=== PATIENT | male | born 1980 | race Caucasian/White ===

== ENCOUNTER 2018-08-20 17:30 | Outpatient (RCR) | payer MEDICAID, SELFPAY ==
--- NOTE | 2018-08-13 13:01 | HP.PTEVAL_ITS ---
Patient's Visit Information YAMILET LAUGHLIN is a 38 year old M referred to Physical Therapy by FRAN Carl with a diagnosis of Thoracic spine pain, muscle spasm. Date of Evaluation: 08/01/18 Physical Therapist: Leobardo Stewart - Visit Plan Frequency: 1x/Week Duration: 4-6 Weeks Plan: Start with manual trigger point release techniques, US to L erector spine of T/S. Postural education, slight extension in sitting. Progress to postural stability exercises as tolerated. - Subjective Subjective: Pt. is here today for his initial evaluation with diagnosis of Thoracic spine pain, muscle spasm. 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 pt reports injuring their back four years ago while lifing a mini fridge. Pain decreases with time but has continuly been reagrivated through lifting and twisting motions. Pain in the throasic region was described by the pt as a stabing feeling and pain in the lumbar region as a thobing/aching pain. No radiating pain was reported. Pain at its worse after reagrivation is reported to be an 8/10. With rest pain decreases to a 2-3/10. pt stated goals for therapy as returning to pain free. - Pain Back Pain Intensity (Out of 10): 8 Pain Intensity Range: 1, 8 - Objective POSTURE: Pt. has general flexed posture, rounded shoulders and FH. Pt. is able to correct, but unable to maintain. PALPATION: Pt. has no pain with deep breathigng or coughing. Pt. has increased tenderness with palpation of Bilateral thoracic erector spine. Increaed pain with spring testing to T1-T8 without radiation. NEURO: All intact, no issues. dermatomal senstaion normal. ROM: Pt. has decreased T/S extension, normal rotation. Pt. has relief of symptoms with erect sitting/posture. MMT: 5/5 throughout UEs, except 4/5 mid trap, 4/5 rhomboids and 4/5 lower trapezius bilaterally. - Special Tests Thoracic Sitting: Flexion - Mechanical Response: No effect Thoracic Sitting: Flexion - Symptoms During Testing: Increases Thoracic Sitting: Flexion - Symptoms After Testing: No worse Thoracic Sitting: Extension - Mechanical Response: No effect Thoracic Sitting: Extension - Symptoms During Testing: Centralizing Thoracic Sitting: Extension - Symptoms After Testing: No better Thoracic Sitting: Right rotation - Mechanical Response: No effect Thoracic Sitting: Right Rotation - Symptoms During Testing: No effect Thoracic Sitting: Right Rotation - Symptoms After Testing: No effect Thoracic Sitting: Left rotation - Mechanical Response: No effect Thoracic Sitting: Left Rotation - Symptoms During Testing: No effect Thoracic Sitting: Left Rotation - Symptoms After Testing: No effect Thoracic Lying: Prone Extension - Mechanical Response: No effect Thoracic Lying: Prone Extension - Symptoms During Testing: Decreases Thoracic Lying: Prone Extension - Symptoms After Testing: No better - Goals Goal 1:: Pt. to be I with HEP. Goal Time Frame: 4-6 Weeks Goal 2:: Pt. to have full ROM of T/S without increase in symptoms. Goal Time Frame: 4-6 Weeks Goal 3:: Pt. to demonstrate improved posture throughout therapy session, indicating increased postural awareness. Goal Time Frame: 4-6 Weeks Goal 4:: Pt. to be able to lift son without increase in symptoms. Goal Time Frame: 4-6 Weeks Goal 5:: Pt. to complete work day without increase in symptoms. Goal Time Frame: 4-6 Weeks - Rehabilitation Potential Physical Therapy Diagnosis: Pt. has signs and symptoms consistent with Thoracic spine pain and muscle spasm. Pt. symptoms are most likely related to poor posture and subsequent lifting. He would benefit from muscle/trigger point release, postural stability, stretcing. Rehabilitation Potential: Excellent - Anticipated Interventions Patient/Client Instruction: Educate patient on: Condition, Plan of Care, Risk Factors, Benefits of Fitness Program For the Purpose of:: To foster healthy habits, To improve decision making, To facilitate caregiver knowledge, To improve self management, To prevent re-injury , To improve ability to perform tasks related to life management, To improve tolerance to ADL's Therapeutic Exercise to Include: Strength training, Power training, Body mechanics, Postural training, Flexibilty training, Passive ROM, Active ROM, Héctor Exercises, Scapular Strength/Stabilization For the Purpose of:: To decrease pain, To increase ROM, To improve nutrient delivery to tissue, To improve muscle performance and motor function, To improve ability to perform ADL's, To improve health of tissue, To decrease soft tissue restriction, To increase flexibility/ROM Manual Therapy Techniques to Include: Trigger point massage, Mobilization, Manipulation, Functional dry needling, Soft tissue mobilization For the Purpose of:: To decrease pain, To increase ROM, To improve nutrient delivery to tissue, To increase oxygenation perfusion, To improve muscle performance and motor function, To improve health of tissue, To decrease soft tissue restriction, To increase flexibility/ROM IF ES: Yes Ultrasound (thermal/non thermal): Yes For the Purpose of:: To decrease pain, To increase ROM Thank you for the opportunity to evaluate your patient. For Medicare and Medicare HMO plans, please review the plan of care and approve it. It will need to be FAXED BACK to us at [phone] for Medicare purposes. Please let me know if there are questions or concerns regarding this plan of care. Physician Signature: Date:
--- NOTE | 2018-12-23 16:51 | HP.PTDCNRP_ITS ---
HP - Discharge Summary (1) - Patient Information YAMILET LAUGHLIN was seen in my office for initial evaluation on 08/01/18. The following Plan of Care was established for this patient: Initial Frequency: 1x/Week Initial Duration: 4-6 Weeks - Anticipated Interventions Patient/Client Instruction: Educate patient on: Condition, Plan of Care, Risk Factors, Benefits of Fitness Program For the Purpose of:: To foster healthy habits, To improve decision making, To facilitate caregiver knowledge, To improve self management, To prevent re- injury, To improve ability to perform tasks related to life management, To improve tolerance to ADL's Therapeutic Exercise to Include: Strength training, Power training, Body mechanics, Postural training, Flexibilty training, Passive ROM, Active ROM, Héctor Exercises, Scapular Strength/Stabilization For the Purpose of:: To decrease pain, To increase ROM, To improve nutrient delivery to tissue, To improve muscle performance and motor function, To improve ability to perform ADL's, To improve health of tissue, To decrease soft tissue restriction, To increase flexibility/ROM Manual Therapy Techniques to Include: Trigger point massage, Mobilization, Manipulation, Functional dry needling, Soft tissue mobilization For the Purpose of:: To decrease pain, To increase ROM, To improve nutrient delivery to tissue, To increase oxygenation perfusion, To improve muscle performance and motor function, To improve health of tissue, To decrease soft tissue restriction, To increase flexibility/ROM IF ES: Yes Ultrasound (thermal/non thermal): Yes For the Purpose of:: To decrease pain, To increase ROM This patient was last seen in our office 08/01/18. Pertinent comments regarding their Physical therapy will appear below: Pt. was seen for his thoracic back pain. Pt. has not been seenin ~4 months and will be DC from PT at this point in time. At this point I will be discontinuing this patient from physical therapy. I would be happy to see this patient again in the future if found appropriate by the physician. Thank you! Leobardo Stewart DPT
== END 2018-08-20 19:00 | disposition home or self-care (01) ==
LOC: PT 17:30
PROVIDERS: Family Provider Nurse Practitioner Family; PCP Nurse Practitioner Family; Visit Provider Nurse Practitioner Family
DX: M54.6 Pain in thoracic spine (principal); M62.838 Other muscle spasm
CPT/HCPCS: 97035; 97110; 97162

== ENCOUNTER → 2018-11-27 15:42 | Outpatient (CLI) | payer MEDICAID, SELFPAY ==
[2018-11-27 14:14] VITALS: BMI 28.3
[2018-11-27 16:38] LABS: Hemoglobin A1c 8.5 % (4.2-6.3)
[2018-11-27 16:41] LABS: Microalbumin,Random Urine 11.6 mg/L (NO RANGE EST.); Microalbumin:Creatinine Ratio 5.8 mg/g CRE (<30 mg/g CRE)
[2018-11-27 16:53] LABS: AST(SGOT) 110 U/L (15-37); Alanine Aminotransfer ALT/SGPT 159 U/L (16-61); Albumin, Serum 3.4 g/dL (3.2-5.0); Alkaline Phosphatase 169 U/L (45-117); Anion Gap 8 (5-15); BUN 21 mg/dL (7-18); BUN/Creat Ratio 17.5 RATIO (10-20); Calcium,Total 8.7 mg/dL (8.5-10.1); Chloride 105 mmol/L (98-107); EST Glomerular Filtration Rate 72 mL/min (>60); Est Glom Filt Rate - Afr Amer 87 mL/min (>60); Globulin 3.5 g/dL (2.2-4.2); Glucose 280 mg/dL (74-106); Potassium 4.9 mmol/L (3.5-5.1); Protein, Total 6.9 g/dL (6.4-8.2); Sodium Level 141 mmol/L (136-145); T4 Free Direct 0.93 ng/dL (0.76-1.46); Thyroid Stim Hormone (TSH) 1.02 uIU/mL (0.358-3.74)
[2018-12-01 08:07] LABS: Testosterone, % Free 1.69 % (1.50-4.20); Testosterone, Free 9.55 ng/dL (5.00-21.00)
[2018-12-01 14:27] LABS: C-Peptide < 0.1 ng/mL (1.1-4.4); Testosterone, Total 565 ng/dL (264-916)
== END ==
PROVIDERS: Family Provider Nurse Practitioner Family; PCP Nurse Practitioner Family; Referring Provider Nurse Practitioner; Visit Provider Nurse Practitioner
DX: E10.65 Type 1 diabetes mellitus with hyperglycemia (principal); R53.82 Chronic fatigue, unspecified; R53.81 Other malaise
CPT/HCPCS: 36415; 80053; 82043; 82570; 83036; 84402; 84403; 84439; 84443; 84681

== ENCOUNTER → 2018-12-17 09:44 | Outpatient (CLI) | payer MEDICAID, SELFPAY ==
[2018-12-17 08:49] VITALS: BMI 29.4
[2018-12-17 12:05] LABS: AST(SGOT) 30 U/L (15-37); Alanine Aminotransfer ALT/SGPT 59 U/L (16-61); Albumin, Serum 3.7 g/dL (3.2-5.0); Alkaline Phosphatase 109 U/L (45-117); Bilirubin, Direct 0.13 mg/dL (0.00-0.30); Cholesterol 215 mg/dL (200); Globulin 3.5 g/dL (2.2-4.2); High Density Lipoprotein 42 mg/dL; Protein, Total 7.2 g/dL (6.4-8.2); Triglycerides 153 mg/dL; Very Low Density Lipoprotein 31 mg/dL (5-40)
--- OUTSIDE RECORDS SUMMARY | 2019-02-21 02:00 | XMS RPT_ITS ---
:1980 Author Organization OHIP Care Team Providers Name Role Phone SABINO ADAME Attending Unavailable SHOOK, Minesh Gaspar Referring Unavailable Nelly Hawkins Attending Unavailable Suzanne, Remy Attending Unavailable Rubio, Toan [employer] Referring Unavailable Suzanne, Remy Attending Unavailable Suzanne, [place] Referring Unavailable Rubio, Toan [employer] Primary Care Unavailable Rubio, Toan [employer] Attending Unavailable Rubio, Toan [employer] Referring Unavailable Rubio, Toan [employer] Primary Care Unavailable Rubio, Toan [employer] Attending Unavailable Oleghe, Efewongbe Referring Unavailable Oleghe, Efewongbe Primary Care Unavailable Rubio, Toan [employer] Attending Unavailable Oleghe, Efewongbe Referring Unavailable Shook, Belkis Gaspar [employer] Attending Unavailable Shook, Belkis Gaspar [employer] Referring Unavailable Rubio, Toan [employer] Primary Care Unavailable Shook, Belkis Gaspar [employer] Attending Unavailable Rubio, Toan [employer] Referring Unavailable PROBLEMS PROBLEMS DATE TYPE CONDITION / CODE ATTENDING STATUS SOURCE 12/17/2018 Unknown E10.65 - Type 1 Suzanne, Remy Active [facility] with hypergly[facility] / E10.65(ICD-10) Repository 12/17/2018 Unknown R07.9 - Chest pain, Suzanne, [place] Active [facility] unspecified / Community R07.9(ICD-10) Hospital Repository 11/27/2018 Unknown R53.82 - Chronic ShoBelkis gonzalez J Active [place] fatigue, [employer] Community unspecified / Hospital R53.82(ICD-10) Repository 11/27/2018 Unknown R53.81 - Other Blekis Roach J Active [place] malaise / [employer] Community R53.81(ICD-10) Hospital Repository 12/25/2018 Unknown M54.6 - Pain in Rubio, Toan Active [facility] thoracic spine / [employer] Community M54.6(ICD-10) Hospital Repository 07/23/2018 Unknown M62.838 - Other Rubio, Toan Active [facility] muscle spasm / [employer] Community M62.838(ICD-10) Hospital Repository PROCEDURES PROCEDURES No Procedure Records FoundRESULTS RESULTS PROGRESS Observed: 12/24/2018 Status: COMPLETED Source: [place] 1:35 PM [facility] REPOSITORY HNO ID: [id number] Author: Sabino Adame Service: (none) Author Type: Physician Type: Progress Notes Filed: 12/24/2018 2:02 PM Note Text: abnormal liver enzymes HPI: John Rangel is a 38 year old male who presents for abnormal liver enzymes. He is known diabetic since age 15; type 1. Has gained weight 50-60 lbs; over the last 5 years. Record Review: [facility] / Outside records reviewed. PAST MEDICAL HISTORY Diagnosis Date - Anxiety - Back pain - Depression - Diabetes mellitus type 1 (HCC) - Elevated liver enzymes PAST SURGICAL HISTORY Procedure Laterality Date - NONE Allergies: ALLERGIES No Known Allergies Medications: buPROPion XL (WELLBUTRIN XL) 150 mg 24 hr tablet WELLBUTRIN XL 150 MG [id number] sertraline (ZOLOFT) 100 mg tablet ZOLOFT 100 MG TABS Omeprazole 40 mg capsule Take 40 mg by mouth once daily. insulin glargine (LANTUS U-100 INSULIN) 100 unit/mL injection LANTUS 100 UNIT/ML SOLN insulin aspart U-100 (NOVOLOG U-100 INSULIN ASPART) 100 unit/mL soln NOVOLOG 100 UNIT/ML SOLN FAMILY HISTORY Problem Relation Age of Onset - Hypertension Mother - Dementia Other Employer And Job Title: None on file Years Of Education Completed: Not specified Marital Status: Social History Substance Use Topics - Smoking status: Former Smoker - Smokeless tobacco: Never Used - Alcohol use Yes Comment: social Review of Systems: Review of Systems Constitutional: Positive for fatigue. Respiratory: Positive for cough. Gastrointestinal: Heartburn Are you taking any blood thinners? No Physical Examination: BP 154/82 Pulse 95 Ht 5' 10 (1.78m) Wt 204 lb (92.5kg) SpO2 96% BMI 29.27 kg/(m2). Physical Exam Constitutional: He is oriented to person, place, and time. He appears well-developed and well-nourished. HENT: Head: Normocephalic. Eyes: Pupils are equal, round, and reactive to light. Conjunctivae and EOM are normal. Neck: Normal range of motion. Neck supple. Cardiovascular: Normal rate, regular rhythm, normal heart sounds and intact distal pulses. Pulmonary/Chest: Effort normal and breath sounds normal. Abdominal: Soft. Bowel sounds are normal. Musculoskeletal: Normal range of motion. Neurological: He is alert and oriented to person, place, and time. He has normal reflexes. Skin: Skin is warm and dry. Psychiatric: He has a normal mood and affect. His behavior is normal. Judgment and thought content normal. Vitals reviewed. Assessment: Nonalcoholic steatohepatitis (zamora) ; likely Plan: Office Visit on 12/24/18 -US ABD RT UPPER QUADRANT -HEP ACUTE PANEL/RNA -HEPATIC FUNCTION PNL -PROTHROMBIN TIME/PT -HEP B SURF AB QUANT -PHOENIX BY IFA SCREEN -LKM AB -MITOCHONDRIAL AB SCR -ALEJO IGG AB -CERULOPLASMIN BLD Loose 10-20 percent body weight Return in about 3 months (around 03/24/2019). Consultation requested by Dr. Ocampo for an opinion regarding elevated liver enzymes. My final recommendations will be communicated back to the requesting physician by way of shared Medical record or letter to requesting physician via [place] mail. I have confirmed and edited as necessary, the PFSH and ROS obtained by others. Sabino Adame MD DATE: 12/24/18 TIME: 1:54 PM CNOV Observed: 12/24/2018 Status: COMPLETED Source: [place] 1:30 PM [facility] REPOSITORY Office Visit ([facility]) MYALIZEJOHN JOY ([id number]) 1980 M Date Time Provider Department 12/24/18 1:30 PM SABINO ADAME During your visit today, we recorded the following information about you: Pulse Blood pressure Weight Height 95/minute 154/82 92.5 kg 1.778 m Sabino Adame MD 12/24/2018 2:02 PM Signed abnormal liver enzymes HPI: John Rangel is a 38 year old male who presents for abnormal liver enzymes. He is known diabetic since age 15; type 1. Has gained weight 50-60 lbs; over the last 5 years. Record Review: [facility] / Outside records reviewed. PAST MEDICAL HISTORY Diagnosis Date - Anxiety - Back pain - Depression - Diabetes mellitus type 1 (HCC) - Elevated liver enzymes PAST SURGICAL HISTORY Procedure Laterality Date - NONE Allergies: ALLERGIES No Known Allergies Medications: buPROPion XL (WELLBUTRIN XL) 150 mg 24 hr tablet WELLBUTRIN XL 150 MG [id number] sertraline (ZOLOFT) 100 mg tablet ZOLOFT 100 MG TABS Omeprazole 40 mg capsule Take 40 mg by mouth once daily. insulin glargine (LANTUS U-100 INSULIN) 100 unit/mL injection LANTUS 100 UNIT/ML SOLN insulin aspart U-100 (NOVOLOG U-100 INSULIN ASPART) 100 unit/mL soln NOVOLOG 100 UNIT/ML SOLN FAMILY HISTORY Problem Relation Age of Onset - Hypertension Mother - Dementia Other Employer And Job Title: None on file Years Of Education Completed: Not specified Marital Status: Social History Substance Use Topics - Smoking status: Former Smoker - Smokeless tobacco: Never Used - Alcohol use Yes Comment: social Review of Systems: Review of Systems Constitutional: Positive for fatigue. Respiratory: Positive for cough. Gastrointestinal: Heartburn Are you taking any blood thinners? No Physical Examination: BP 154/82 Pulse 95 Ht 5' 10 (1.78m) Wt 204 lb (92.5kg) SpO2 96% BMI 29.27 kg/(m2). Physical Exam Constitutional: He is oriented to person, place, and time. He appears well-developed and well-nourished. HENT: Head: Normocephalic. Eyes: Pupils are equal, round, and reactive to light. Conjunctivae and EOM are normal. Neck: Normal range of motion. Neck supple. Cardiovascular: Normal rate, regular rhythm, normal heart sounds and intact distal pulses. Pulmonary/Chest: Effort normal and breath sounds normal. Abdominal: Soft. Bowel sounds are normal. Musculoskeletal: Normal range of motion. Neurological: He is alert and oriented to person, place, and time. He has normal reflexes. Skin: Skin is warm and dry. Psychiatric: He has a normal mood and affect. His behavior is normal. Judgment and thought content normal. Vitals reviewed. Assessment: Nonalcoholic steatohepatitis (zamora) ; likely Plan: Office Visit on 12/24/18 -US ABD RT UPPER QUADRANT -HEP ACUTE PANEL/RNA -HEPATIC FUNCTION PNL -PROTHROMBIN TIME/PT -HEP B SURF AB QUANT -PHOENIX BY IFA SCREEN -LKM AB -MITOCHONDRIAL AB SCR -ALEJO IGG AB -CERULOPLASMIN BLD Loose 10-20 percent body weight Return in about 3 months (around 03/24/2019). Consultation requested by Dr. Ocampo for an opinion regarding elevated liver enzymes. My final recommendations will be communicated back to the requesting physician by way of shared Medical record or letter to requesting physician via US mail. I have confirmed and edited as necessary, the PFSH and ROS obtained by others. Sabino Adame MD DATE: 12/24/18 TIME: 1:54 PM Referring Provider: Minesh ROACH [[id number]] Allergies As of Date: 12/24/2018 (No Known Allergies) Date Reviewed: 12/24/2018 Reviewed by: Lucero Cotton LPN - Fully Assessed Reason for Visit: abnormal liver enzymes [Other] Visit Diagnosis:Nonalcoholic steatohepatitis (ZAMORA) [K75.81] Order(s):HEP ACUTE PANEL/RNA [SQHACRNA] Order #: [id number] FUTURE HEPATIC FUNCTION PNL [SQHFP] Order #: [id number] FUTURE PROTHROMBIN TIME/PT [SQPT] Order #: [id number] FUTURE HEP B SURF AB QUANT [SQAHBSQ] Order #: [id number] FUTURE PHOENIX BY IFA SCREEN [SQANAIFS] Order #: [id number] FUTURE LKM AB [SQLKM] Order #: [id number] FUTURE MITOCHONDRIAL AB SCR [SQMITOS] Order #: [id number] FUTURE ALEJO IGG AB [SQSMAB] Order #: [id number] FUTURE US ABD RT UPPER QUADRANT [1445115] Order #: [id number] FUTURE CERULOPLASMIN BLD [SQCERULO] Order #: [id number] FUTURE Prescriptions as of 12/24/2018 Sig: BUPROPION XL 150 MG TAB WELLBUTRIN XL 150 MG [id number] SERTRALINE 100 MG TABLET ZOLOFT 100 MG TABS OMEPRAZOLE 40 MG CAPSULE,LISA* Take 40 mg by mouth once rafal* INSULIN GLARGINE (U-100) 100 * LANTUS 100 UNIT/ML SOLN INSULIN ASPART U-100 100 UNI* NOVOLOG 100 UNIT/ML SOLN Problem List As Of Date 12/24/2018 Noted Resolved Nonalcoholic steatohepatitis (ZAMORA) [K75.81] INVALID FOR* Disposition: Return in about 3 months (around 03/24/2019). Follow-up and Disposition History Recorded Encounter Status:Closed by SABINO ADAME on 12/24/18 LIVER PROFILE Collected: 12/17/2018 Status: F Source: [place] 9:59 AM [facility] REPOSITORY TYPE CODE TESTS RESULT OUT OF RANGE REFERENCE UNITS LAB L501.1500 6.4-8.2 g/dL Normal T PROT 7.2 LAB L501.1800 3.2-5.0 g/dL Normal ALB 3.7 LAB L501.1950 2.2-4.2 g/dL Normal GLOB 3.5 LAB L501.4100 15-37 U/L Normal AST 30 LAB L501.4305 45-117 U/L Normal ALK P 109 LAB L501.4405 16-61 U/L Normal ALT 59 LAB L501.4600 0.20-1.00 mg/dL Normal T BILI 0.70 LAB L501.4700 0.00-0.30 mg/dL Normal D BILI 0.13 Performed By: #### L500.3400, L500.4100 #### [facility] [address] [place], [address] LIPID PROFILE Collected: 12/17/2018 Status: F Source: [place] 9:59 AM [facility] REPOSITORY TYPE CODE TESTS RESULT OUT OF RANGE REFERENCE UNITS LAB L501.4900 200 mg/dL High CHOL 215 Result Comment: <200 mg/dL Desirable 200-240 mg/dL Borderline >240 mg/dL High Risk LAB L501.5000 mg/dL Normal TRIG 153 Result Comment: The drugs N-Acetylcysteine and Metamizole may falsely depress this assay. Serum Triglycerides Reference Interval Normal <150 mg/dL Borderline high 150 - 199 mg/dL High 200 - 499 mg/dL Very High > or = 500 mg/dL LAB L501.6400 mg/dL Normal HDL 42 Result Comment: The drugs N-Acetylcysteine and Metamizole may falsely depress this assay. Reference Range HDL <40 mg/dL Low HDL Cholesterol HDL >or= 60 mg/dL High HDL Cholesterol LAB L501.6500 0-130 mg/dL High LDL 142 LAB L501.6600 5-40 mg/dL Normal VLDL 31 Performed By: #### L500.3400, L500.4100 #### [facility] [address] [place], [address] CARDIOLOGY VISIT Observed: 12/17/2018 Status: F Source: [place] 9:37 AM [facility] REPOSITORY [facility] [address] [place] [address] OFFICE VISIT Date of Service: 12/17/18 MR#: [id number] Acct: [id number] Name: JOHN RANGEL Rep #: [id number] : 1980 Provider: Remy Palacios MD Age/Sex: 38/M Location: [facility] Status: Signed HPI HPI Chief Complaint: Initial visit Details: JOHN RANGEL, is a 38 M who presents to the office today for an initial visit. He is a gentleman with a history of type 1 diabetes since age 14. He complains of chest pain which he describes as intermittent sharp but not necessarily related to activity noted associated with any radiation dizziness or diaphoresis. He is also had some palpitations on occasion. He says that this has been going on for a few months. He mentioned it to his arts and sciences dean who referred him here. He does have a history of anxiety disorder. He is not had any uday syncope or syncope he is not had any claudication. His physical exam here today demonstrates clear lung singleton regular rate and rhythm no carotid bruit no pedal edema his electrocardiogram demonstrates normal sinus rhythm with a rate of 70 bpm no acute changes are noted. Intake Vital Signs12/17/18 Height 5 ft 10 in Intake Visit Reasons: Ref'd by endo for intmt CP Allergies No Known Allergies Allergy (Verified 12/17/18 08:50) Medications glucagon (human recombinant) 1 mg injection kit 1 mg IM ONCE 12/05/17 [History Confirmed 11/27/18] novolog SC TID 12/05/17 [History Confirmed 11/27/18] sertraline 100 mg tablet 100 mg PO QDAY 12/05/17 [History Confirmed 11/27/18] BD Ultra-Fine Jeanne Pen Needle 32 gauge x See Dose Instructions .ROUTE .MEDSUPPLY #150 ea NS 02/01/18 [Rx Confirmed 11/27/18] cyclobenzaprine 10 mg tablet 5 mg PO TID PRN #30 tab 07/23/18 [Rx Confirmed 11/27/18] omeprazole 40 mg capsule,delayed release 40 mg PO DAILY #30 cap 11/07/18 [Rx Confirmed 11/27/18] bupropion HCl XL 150 mg 24 hr tablet, extended release 150 mg PO QAM #90 tab 11/21/18 [Rx Confirmed 11/27/18] naproxen 500 mg tablet 500 mg PO Q12H PRN #60 tab 11/21/18 [Rx Confirmed 11/27/18] insulin aspart U- 100 100 unit/mL subcutaneous pen See Rx Instructions SC .COMPLEX #30 ml 11/24/18 [Rx Confirmed 11/27/18] insulin glargine (U-100) 100 unit/mL (3 mL) subcutaneous pen 50 unit SC DAILY #15 ml 12/03/18 [Rx] [facility] Medical History Diabetes mellitus type 1, uncontrolled, insulin dependent (Chronic) Anxiety and depression (Chronic) Chronic back pain (Chronic) GERD (gastroesophageal reflux disease) (Chronic) Nondisplaced fracture of fifth metatarsal bone (Resolved) Family History Mother Hypertension Grandmother Dementia Social History Smoking Status: Former smoker alcohol intake: current alcohol intake frequency: holidays/special occasions only Alcohol type: beer, wine substance use type: does not use what type of physical activity do you participate in: none ROS Const Const: Positive for fatigue; negative for weakness, difficulty sleeping, frequent falls, excessive sweating or headache(s) Eyes Eyes: Negative for loss of peripheral vision, transient loss of vision, blurry vision, tunnel vision or double vision ENT ENT: Negative for headache(s), dizziness, Nosebleed/epistaxis or balance problems Cardio Chest Pain: Yes (With palpitations, tightness last longer than palpitations becomes SOB) Frequency: monthly Character: tightness Palpitations: Yes (For several years has had episodes of fluttering lasting a few minutes) feels like its: fast (fluttering), irregular Edema: None Muscle aches with walking: None Resp Respiratory: Positive for snoring; negative for SOB with activity, SOB at rest, SOB orthopnea\SOB lying down, paroxysmal nocturnal dyspnea or Cough GI GI: Negative nausea, heartburn, black,tarry stools or vomiting : Negative for hematuria Musc Musc: Negative for balance problems, muscle aches/ myalgia, muscle weakness or joint pain Skin Skin: Negative non-healing lesions, unusual bruising or rash Neuro Neuro: Negative for weakness, frequent falls, headache(s), blurry vision, double vision, dizziness, lightheadedness, orthostatic symptoms, near syncope, syncope or lack of coordination Rajiv Hematologic/Lymphatic: Negative for easy bruising or easy bleeding Endo Endo: Positive for fatigue; negative for excessive sweating or increased thirst/drinking Psych Psych: Negative for anxiety or depression Allergy Allergy/Immunology: Negative for hives, Negative for rash Cardiology Exam Const Appearance: cooperative, healthy appearing, well developed, well groomed and no acute distress Nutritional Appearance: well nourished and average body habitus Orientation: alert, awake and oriented x3 Head Head: normal to inspection, normocephalic and atraumatic Ears: hearing grossly normal bilaterally and external ears normal Nose: external nose normal, nasal mucous membranes and turbinates normal, nares normal, septum normal, no nasal discharge Face and Sinus: face symmetric Mouth: oral mucosae normal, tongue normal, oropharynx normal and moist mucous membranes Teeth and gingiva: dentition normal Throat: posterior oropharynx normal, tonsils normal and uvula midline Eyes General: appearance normal, both eyes and all related structures Eyelids: eyelids normal Conjunctivae: conjunctivae normal Pupils: PERRL, normal by confrontation and accommodation normal EOM: EOM intact bilaterally Neck Neck: normal visual inspection, trachea midline and no JVD JVD: +5 Carotids: normal carotid upstroke and bounding pulses Chest Chest inspection: normal inspection of the chest, symmetric chest movement and normal respiratory effort Auscultation: Bilateral: Clear to Auscultation Cardio Palpation: normal PMI Rate: regular rate Rhythm: regular rhythm Heart sounds: S1 normal, S2 normal and normal, physiologic split S2; negative rub, gallop or murmur GI GI: normal to inspection, soft, no hepatosplenomegaly and bowel sounds present Neuro General: alert, awake, oriented x3, no focal sensory deficit, gait normal and moves all extremities Skin Skin: no rashes or lesions noted Extremities Pulses: Normal: Right Femoral Pulse, Left Femoral Pulse, Right Dorsalis Pedis Pulse, Left Dorsalis Pedis Pulse, Right Posterior Tibial Pulse, Left Posterior Tibial Pulse, Right Radial Pulse, Left Radial Pulse Lower Extremity Edema: None: Bilateral Musculoskel Musculoskeletal: No joint tenderness Psych Psychological: normal affect Assessment AND Plan 1. Chest pain R07.9 Plan He does have a history of chest pain which is somewhat atypical. He does unfortunately however have a diagnosis of a type 1 diabetes and based on the above I would recommend that we obtain an exercise myocardial perfusion stress test as well as an echocardiogram. Depending on the findings of the above further recommendations will be made. Further risk stratification should also be performed by him obtaining a lipid profile. I would communicate with him the results of the above afterwards. Orders Orders: Plan Detail Other Orders Orders: Follow Up prn Coding Level of Care Code Off vis,new,level 4 Diagnoses Chest pain R07.9 Coding Level of Care Code Off vis,new,level 4 Diagnoses Chest pain R07.9 Supplemental Info Supplemental Information Diagnostics Electrocardiogram 12/17/18 12/17/18 0937 <Electronically signed by Remy Palacios MD> Date Remy Palacios MD Cosigner Signature: Date (if applicable) CC: Toan Rubio [employer] 12 LEAD EKG PERFORMED Observed: 12/17/2018 Status: F Source: [place] [facility] 8:55 AM [facility] REPOSITORY [facility] [address] [place] [address] 12 Lead EKG performed by [facility] 12/17/18 0851 MR#: [id number] Acct: [id number] Name: JOHN RANGEL Rep #: [id number] : 1980 38 From: Remy Palacios MD Attending Dr: Remy Palacios MD Status: DEP AMB Ordering Dr: Remy Palacios MD Date: 12/17/18 Location: [facility] Sex: M C Admitted: [facility]/12 Lead EKG performed by [facility] ECG Report Interpretation Sinus Rhythm WITHIN NORMAL LIMITSElectronically signed on 12/23/2018 at 13:15 by Remy Palacios Software Version [id number] 12/23/18 1319 Date Remy Palacios MD CC: Toan Rubio [employer] Date Dictated: 12/17/18 0851 Date Transcribed: 12/17/1851 [employer] Well Pumper: [place] Signed ENDOCRINOLOGY VISIT Observed: 12/02/2018 Status: F Source: [place] REPORT 5:25 PM [facility] REPOSITORY [facility] [address] [place] [address]. [address] [place] [address] OFFICE VISIT Date of Service: 11/27/18 MR#: [id number] Acct: [id number] Name: JOHN RANGEL Rep #: [id number] : 1980 Provider: Belkis Roach NP Age/Sex: 38/M Location: [facility] Status: Signed HPI History of present illness John Rangel is a 38 year old male who presents as a follow up for type 1 diabetes, accompanied by his . Diagnosed at age 14. Seen one time over 1 year ago. Has not had follow up for diabetes since that time. Reports currently he is interested in an insulin pump. He is now qualified for insurance with work beginning in December 2018 Wore the app2you sensor for awhile but reports cost prohibitive. He reports he continues to take lantus at 50 units daily and not to make any adjustments in it.. He uses novolog up to 15 units pre meal Carb counts some but does not use or understand I/C ratio's. Also known hx of depression and back pain. Diet 3 meals and snacks,zoe at bedtime Some carb counting No I/C ratio SMBG am 83-400 12n 82-200+ 5p 72-240 9p 55-170 12m 50-500 Type: type 1, insulin-requiring Glucose control symptoms: Reports high fasting glucose, high post-meal glucose and daytime hypoglycemia Weight and fatigue symptoms: Denies snoring Cardiopulmonary symptoms: Denies chest pain at rest, dyspnea on exertion, lightheadedness or myalgias GI symptoms: Reports nausea/dyspepsia and vomiting; denies constipation or diarrhea Skin and extremity symptoms: Denies erectile dysfunction Other symptoms: Denies blurry vision or change in vision Pertinent visit history: Denies recent visit to ER, recent hospital admission, recent DKA or recent 911 calls Self monitoring: Yes Percentage of fasting blood glucose within goal: <25% of the time Dietary compliance: Diabetes: other Diabetes education in past year: No Glucose testing: demonstrates correct use of meter Sick day education - understands ketone testing: Yes Physical activity: regular Exam Const General: healthy appearing Nutritional Appearance: well nourished Orientation: oriented x3 HENMT Head: normal to inspection, normocephalic Ears: hearing grossly normal bilaterally Nose: external nose normal Face and sinus: normal facial exam Mouth: oral mucosae normal, moist mucous membranes Teeth and gingiva: dentition normal Eyes General: appearance normal, both eyes and all related structures Eyelids: eyelids normal Conjunctivae: conjunctivae normal Sclera: sclerae normal Resp Effort AND Inspection: normal respiratory effort, able to speak in complete sentences, symmetric chest movement Auscultation: Bilateral: Clear to Auscultation Cardio Rate: regular rate Rhythm: regular rhythm Heart Sounds: S1 normal, S2 normal, no murmurs, no rubs GI Inspection: normal to inspection Auscultation: normal bowel sounds Skin General: no rashes or lesions noted, elasticity normal Wounds: no wounds Diabetic Foot Pulses: L dorsalis pedis pulse: normal, R dorsalis pedis pulse: normal Neuro General: oriented x3, moves all extremities Cranial Nerves: hearing normal Cognition: normal cognition Speech: speech normal Gait: normal gait Extrem General: normal to inspection, normal capillary refill, no pedal edema Psych Appearance: grossly normal Mental Status: mental status grossly normal Mood: congruent mood Affect: normal affect Speech and Movement: speech and movement normal Attitude: cooperative Thought Process: normal Thought Content: normal Judgment: judgment good Intake Vital Signs11/27/18 Body Mass Index (BMI) 28.3 Intake Visit Reasons: Diabetes Mellitus Type 1 Chief Complaint: back pain Allergies No Known Allergies Allergy (Verified 11/27/18 14:31) Medications glucagon (human recombinant) 1 mg injection kit 1 mg IM ONCE 12/05/17 [History Confirmed 11/27/18] insulin glargine (U- 100) 100 unit/mL subcutaneous solution 90 unit SC QHS ml 12/05/17 [History Confirmed 11/27/18] novolog SC TID 12/05/17 [History Confirmed 11/27/18] sertraline 100 mg tablet 100 mg PO QDAY 12/05/17 [History Confirmed 11/27/18] BD Ultra-Fine Jeanne Pen Needle 32 gauge x See Dose Instructions .ROUTE .MEDSUPPLY #150 ea NS 02/01/18 [Rx Confirmed 11/27/18] cyclobenzaprine 10 mg tablet 5 mg PO TID PRN #30 tab 07/23/18 [Rx Confirmed 11/27/18] omeprazole 40 mg capsule,delayed release 40 mg PO DAILY #30 cap 11/07/18 [Rx Confirmed 11/27/18] bupropion HCl XL 150 mg 24 hr tablet, extended release 150 mg PO QAM #90 tab 11/21/18 [Rx Confirmed 11/27/18] naproxen 500 mg tablet 500 mg PO Q12H PRN #60 tab 11/21/18 [Rx Confirmed 11/27/18] insulin aspart U- 100 100 unit/mL subcutaneous pen See Rx Instructions SC .COMPLEX #30 ml 11/24/18 [Rx Confirmed 11/27/18] PFSH Medical History Nondisplaced fracture of fifth metatarsal bone of right foot (Acute) Anxiety (Chronic) diabetes type 1 (Chronic) Depression (Chronic) Back pain (Chronic) Family History Mother Hypertension Grandmother Dementia Social History Smoking Status: Former smoker alcohol intake: current alcohol intake frequency: holidays/special occasions only Alcohol type: beer, wine substance use type: does not use what type of physical activity do you participate in: none ROS Const Constitutional: Positive for fever(s); no anorexia, body ache, chills, fatigue, frequent falls, decreased energy, malaise, night sweats, weakness, weight change, sleep problems, abnormal sleep pattern, change in appetite, other, headache(s), snoring or excessive sweating Eyes Eyes: No blurry vision, change in vision, double vision, discharge, dry eyes, bulging eyes, floaters, visual disturbances, eye pain, light sensitivity, spots in vision, tunnel vision or other ENT ENT: Positive for nasal congestion and nasal discharge; no abnormal hearing, ear pain, ear discharge, ear pressure, hearing loss, tinnitus, dizziness/vertigo, balance problems, nosebleed/epistaxis, nasal obstruction, nose pain, sinus pressure, sinus pain, post nasal drip, headache(s), facial pain, dental pain, dry mouth, bad breath, hoarseness, lip swelling, mouth lesions, mouth pain, sore throat, tongue swelling, throat swelling, other, difficulty swallowing or neck pain Resp Respiratory: No cough, change in phlegm color, chest congestion, excessive phlegm production, hemoptysis, pain on inspiration, shortness of breath, pain with cough, snoring, stridor, wheezing or other Cardio Cardiology: No chest pain at rest, chest pain with exertion, leg pain with exertion, excessive sweating, shortness of breath, dyspnea on exertion, generalized swelling, irregular heart rhythm, lightheadedness, orthopnea, radiating jaw, neck or arm pain, fast heart rate, slow heart rate, palpitations or other Gastro GI: Positive for nausea/dyspepsia and vomiting; no abdominal pain, belching, bloating, change in bowel habits, change in stool character, coffee ground emesis, constipation, cramping, diarrhea, heartburn, difficulty swallowing, feeling full early, excessive flatus, incontinent of stools, Vomiting blood/hematemesis, blood in stool, loose stools, Black,tarry stools, pain with swallowing or other Genitourinary Male: No difficulty urinating, burning urination, painful urination, urinary incontinence, urinary frequency, urinary urgency, urinary hesitancy, urinary retention, blood in urine, Frequent nighttime urination/ nocturia, post void dribbling, suprapubic fullness, side pain, sexual problems, genital lesions, genital itching, erectile dysfunction, penile discharge, difficulty with ejaculations, blood in semen, scrotal swelling, testicle lump, testicle pain or other Musc Musculoskeletal: No abnormal walking, joint pain, back pain, deformity, joint swelling, limited range of motion, loss of height, muscle cramps, muscle weakness, decreased muscle mass, body aches, neck pain, numbness, radiating pain into limb, stiffness, tingling or other Skin Skin: No acne, hair loss, change in hair, nail changes, boil, change in skin color, dry skin, redness, excessive hair growth, yellowing of the skin, lesions, itching, rash, skin pain, skin ulcer, sores, skin swelling, wounds or other Breast Breast: No other Neuro Neurology: No frequent falls, weakness, visual disturbances, abnormal hearing, headache(s), abnormal walking, numbness or tingling Psych Psychiatric: No abnormal sleep pattern, No change in appetite Endo Endocrine: No fatigue, other or excessive sweating Aller/Imm Allergy/Immunologic: No lip swelling, tongue swelling, throat swelling, wheezing or itchy eyes Assessment AND Plan Problems 1. Uncontrolled type 1 diabetes mellitus with hyperglycemia E10.65 Plan BG readings checked 2-4 times daily. Not checked in consistent manner such as before meals and 2 hours after. Discussed with patient as a type 1 he requires visits on consistent basis and should be seen every 3 months with consistent labs done as well Discussed with patient how to carb count and the importance of determining his I/C ratio for use with an insulin pump. He is ask to check Bg consistently and RTC for further review and possible adjustment of insulin. Labs due Reports recent onset of ED. Instructed bg can have enormous effect on this and he will need to have better control When ask if he had any cardiac issue he then tells me he has episodes of chest pain a few times a month. None at time of visit. Reports pain is dull and lasts only a few minutes. No SOB or sweating noted with pain. He reports it is independent of whether or not he is active. Patient Instructions Labs Consult cardiology Check BG in pairs, before meals and 2 hours after meal RTC for further review and possibly adjustment. Orders Orders: Plan Detail Additional Comments 1. Please schedule follow up in 3-4 weeks. Please be on time for appointments. 2. Lab work one week before appointment. 3. Discussed importance of regular exercise and recommend starting or continuing a regular exercise program for good health. 4. The patient was encouraged to lose weight for good health 5. The importance of monitoring blood sugar regularly was reviewed. 6. The importance of monitoring the HBA1c level regularly was reviewed. 7. The importance of prper foot care and regularly checking feet to prevent sores and loss of limbs was reviewed. 8. The importance of keeping BP at or below 130/80 to prevent stroke, heart attacks, kidney failure, blindness was reviewed. Spent approximately 45 minutes with patient with over 50% of time spent in discussion and counseling regarding medication adjustment, symptoms and treatment of hypoglycemia, diet adherence, and checking BG before driving. Coding Level of Care Code Off vis,est,level 4 Diagnoses Uncontrolled type 1 diabetes mellitus with hyperglycemia E10.65 Glycemic state: with hyperglycemia 12/02/18 1725 <Electronically signed by Belkis PETERS> Date Belkis PETERS Cosigner Signature: Date (if applicable) CC: HEMOGLOBIN A1C Collected: 11/27/2018 Status: F Source: [place] 3:47 PM [facility] [place] REPOSITORY TYPE CODE TESTS RESULT OUT OF RANGE REFERENCE UNITS LAB L501.9985 4.2-6.3 % High HGB A1C 8.5 Performed By: #### L501.9985 #### [facility] [address] [place], [place], [address] MICROALB:CREAT Collected: 11/27/2018 Status: F Source: [place]I RATIO,RANDOM UR 3:47 PM [facility] REPOSITORY TYPE CODE TESTS RESULT OUT OF RANGE REFERENCE UNITS LAB L501.1200 NO RANGE EST. mg/dL Normal UR CREAT 201.00 LAB L502.0500 NO RANGE EST. mg/L Normal 11.6 MICROALBUMIN ,UR LAB L502.0600 <30 mg/g CRE mg/g CRE Normal 5.8 MALB:CREAT Performed By: #### L502.0250 #### [facility] [address] [place], [place], [address] COMPREHENSIVE METABOLIC Collected: 11/27/2018 Status: F Source: YI PROFIL 3:47 PM [facility] [place] REPOSITORY Order Comment: Has Patient had X-rays with Contrast this admission? N TYPE CODE TESTS RESULT OUT OF RANGE REFERENCE UNITS LAB L501.0100 74-106 mg/dL High GLU 280 Result Comment: Glucose result greater than or equal to 200 mg/dL suggests DIABETES MELLITUS per A.D.A. criteria. Please note revised GLUCOSE reference range effective 2018. LAB L501.1000 7-18 mg/dL High BUN 21 LAB L501.1100 0.70-1.30 mg/dL Normal CREAT,SERUM 1.20 Result Comment: The validity of the calculated GFR AND GFRAA in patients over 70 years has not been determined. Clinical correlation is essential. LAB L501.1110 >60 mL/min Normal EST GFR 72 Result Comment: Non- GFR Calc LAB L501.1115 >60 mL/min Normal EST GFR - AA 87 Result Comment: GFR Calc LAB L501.1300 10-20 RATIO Normal BUN/CRE 17.5 LAB L501.1500 6.4-8.2 g/dL T Normal PROT 6.9 LAB L501.1800 3.2-5.0 g/dL Normal ALB 3.4 LAB L501.1950 2.2-4.2 g/dL Normal GLOB 3.5 LAB L501.2000 0.9-2.4 RATIO Normal A/G 1.0 LAB L501.2200 8.5-10.1 mg/dL CA Normal 8.7 LAB L501.4100 15-37 U/L High AST 110 Result Comment: Slight Hemolysis, Result may be falsely increased. LAB L501.4305 45-117 U/L High ALK P 169 LAB L501.4405 16-61 U/L High ALT 159 LAB L501.4600 0.20-1.00 mg/dL Normal T BILI 0.40 LAB L501.5300 136-145 mmol/L Normal NA 141 LAB L501.5600 3.5-5.1 mmol/L Normal K 4.9 Result Comment: Slight Hemolysis, Result may be falsely increased. LAB L501.5900 98-107 mmol/L Normal CL 105 LAB L501.6100 21.0-32.0 mmol/L Normal CO2 28.0 LAB L501.6200 5-15 Normal 8 GAP Performed By: #### L500.4050, L501.9520, L506.0400 #### [facility] [address] [place], [address] THYROID STIM HORMONE Collected: 11/27/2018 Status: F Source: YI (TSH) 3:47 PM [facility] REPOSITORY Order Comment: Has Patient had X-rays with Contrast this admission? N TYPE CODE TESTS RESULT OUT OF RANGE REFERENCE UNITS LAB L501.9520 0.358-3.74 uIU/mL Normal TSH 1.02 Performed By: #### L500.4050, L501.9520, L506.0400 #### [facility] [address] [place], [address] T4 FREE DIRECT Collected: 11/27/2018 Status: F Source: [place] 3:47 PM [facility] REPOSITORY Order Comment: Has Patient had X-rays with Contrast this admission? N TYPE CODE TESTS RESULT OUT OF RANGE REFERENCE UNITS LAB L506.0400 0.76-1.46 ng/dL Normal T4 FREE 0.93 DIRECT Performed By: #### L500.4050, L501.9520, L506.0400 #### [facility] [address] [place] [place], [address] TESTOSTERONE, TOTAL / Collected: 11/27/2018 Status: F Source: YI FREE 3:47 PM [facility] [place] REPOSITORY Order Comment: Has Patient had X-rays with Contrast this admission? N TYPE CODE TESTS RESULT OUT OF RANGE REFERENCE UNITS LAB L3100.5320 264-916 ng/dL Normal 565 TESTOSTER,TO ELAN Result Comment: Adult male reference interval is based on a population of healthy nonobese males (BMI <30) between 19 and 39 years old. Pradip, et.al. JCEM 2017,102;7208-5717. PMID: [id number]. LAB L3100.5340 5.00-21.00 ng/dL TESTOSTER,FREE Normal 9.55 LAB L3100.5360 1.50-4.20 % TESTOSTER %FREE Normal 1.69 Performed By: #### L3100.5310, L3100.7750 #### [facility] (refer to report for specific site) refer to report for address and phone number [email or web address] Collected: 11/27/2018 Status: F Source: [place] 3:47 PM [facility] REPOSITORY Order Comment: Has Patient had X-rays with Contrast this admission? N TYPE CODE TESTS RESULT OUT OF REFERENCE UNITS RANGE LAB L3100.7750 1.1-4.4 ng/mL Low C PEPTIDE 43516 < 0.1 Result Comment: C-Peptide reference interval is for fasting patients. Performed at: - [facility] [address] [id number] [employer]: Brett Watson PhD, Phone: [phone] Performed at: - [facility] [address] [id number] [employer]: Hussein Goss MD, Phone: [phone] Performed By: #### L3100.5310, L3100.2550 #### [facility] (refer to report for specific site) refer to report for address and phone number INITAL EVALUATION (1) Observed: 08/13/2018 Status: F Source: [place] - PT 1:01 PM [facility] REPOSITORY [facility] [address] [place] [address] Rd. [address] [place] [address] Fax REHABILITATION SERVICES INITIAL EVALUATION MR#: [id number] Acct: [id number] Name: JOHN RANGEL Rep #: [id number] : 1980 38 From: Leobardo Stewart DPT Referring Dr.: Toan Rubio [employer] Status: REG R Insurance: [facility] SELF PAY INSURANCE Patient's Visit Information JOHN RANGEL is a 38 year old M referred to Physical Therapy by Toan Rubio, HAYDE-C with a diagnosis of Thoracic spine pain, muscle spasm. Date of Evaluation: 08/01/18 Physical Therapist: Leobardo Stewart - Visit Plan Frequency: 1x/Week Duration: 4-6 Weeks Plan: Start with manual trigger point release techniques, US to L erector spine of T/S. Postural education, slight extension in sitting. Progress to postural stability exercises as tolerated. - Subjective Subjective: Pt. is here today for his initial evaluation with diagnosis of Thoracic spine pain, muscle spasm. 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 pt reports injuring their back four years ago while lifing a mini fridge. Pain decreases with time but has continuly been reagrivated through lifting and twisting motions. Pain in the throasic region was described by the pt as a stabing feeling and pain in the lumbar region as a thobing/aching pain. No radiating pain was reported. Pain at its worse after reagrivation is reported to be an 8/10. With rest pain decreases to a 2-3/10. pt stated goals for therapy as returning to pain free. - Pain Back Pain Intensity (Out of 10): 8 Pain Intensity Range: 1, 8 - Objective POSTURE: Pt. has general flexed posture, rounded shoulders and FH. Pt. is able to correct, but unable to maintain. PALPATION: Pt. has no pain with deep breathigng or coughing. Pt. has increased tenderness with palpation of Bilateral thoracic erector spine. Increaed pain with spring testing to T1-T8 without radiation. NEURO: All intact, no issues. dermatomal senstaion normal. ROM: Pt. has decreased T/S extension, normal rotation. Pt. has relief of symptoms with erect sitting/posture. MMT: 5/5 throughout UEs, except 4/5 mid trap, 4/5 rhomboids and 4/5 lower trapezius bilaterally. - Special Tests Thoracic Sitting: Flexion - Mechanical Response: No effect Thoracic Sitting: Flexion - Symptoms During Testing: Increases Thoracic Sitting: Flexion - Symptoms After Testing: No worse Thoracic Sitting: Extension - Mechanical Response: No effect Thoracic Sitting: Extension - Symptoms During Testing: Centralizing Thoracic Sitting: Extension - Symptoms After Testing: No better Thoracic Sitting: Right rotation - Mechanical Response: No effect Thoracic Sitting: Right Rotation - Symptoms During Testing: No effect Thoracic Sitting: Right Rotation - Symptoms After Testing: No effect Thoracic Sitting: Left rotation - Mechanical Response: No effect Thoracic Sitting: Left Rotation - Symptoms During Testing: No effect Thoracic Sitting: Left Rotation - Symptoms After Testing: No effect Thoracic Lying: Prone Extension - Mechanical Response: No effect Thoracic Lying: Prone Extension - Symptoms During Testing: Decreases Thoracic Lying: Prone Extension - Symptoms After Testing: No better - Goals Goal 1:: Pt. to be I with HEP. Goal Time Frame: 4-6 Weeks Goal 2:: Pt. to have full ROM of T/S without increase in symptoms. Goal Time Frame: 4-6 Weeks Goal 3:: Pt. to demonstrate improved posture throughout therapy session, indicating increased postural awareness. Goal Time Frame: 4-6 Weeks Goal 4:: Pt. to be able to lift son without increase in symptoms. Goal Time Frame: 4-6 Weeks Goal 5:: Pt. to complete work day without increase in symptoms. Goal Time Frame: 4-6 Weeks - Rehabilitation Potential Physical Therapy Diagnosis: Pt. has signs and symptoms consistent with Thoracic spine pain and muscle spasm. Pt. symptoms are most likely related to poor posture and subsequent lifting. He would benefit from muscle/trigger point release, postural stability, stretcing. Rehabilitation Potential: Excellent - Anticipated Interventions Patient/Client Instruction: Educate patient on: Condition, Plan of Care, Risk Factors, Benefits of Fitness Program For the Purpose of:: To foster healthy habits, To improve decision making, To facilitate caregiver knowledge, To improve self management, To prevent re-injury, To improve ability to perform tasks related to life management, To improve tolerance to ADL's Therapeutic Exercise to Include: Strength training, Power training, Body mechanics, Postural training, Flexibilty training, Passive ROM, Active ROM, Héctor Exercises, Scapular Strength/Stabilization For the Purpose of:: To decrease pain, To increase ROM, To improve nutrient delivery to tissue, To improve muscle performance and motor function, To improve ability to perform ADL's, To improve health of tissue, To decrease soft tissue restriction, To increase flexibility/ROM Manual Therapy Techniques to Include: Trigger point massage, Mobilization, Manipulation, Functional dry needling, Soft tissue mobilization For the Purpose of:: To decrease pain, To increase ROM, To improve nutrient delivery to tissue, To increase oxygenation perfusion, To improve muscle performance and motor function, To improve health of tissue, To decrease soft tissue restriction, To increase flexibility/ROM IF ES: Yes Ultrasound (thermal/non thermal): Yes For the Purpose of:: To decrease pain, To increase ROM Thank you for the opportunity to evaluate your patient. For Medicare and Medicare HMO plans, please review the plan of care and approve it. It will need to be FAXED BACK to us at [phone] for Medicare purposes. Please let me know if there are questions or concerns regarding this plan of care. Physician Signature: Date: <Electronically signed by Leobardo Stewart DPT> 08/13/18 1301 CC: Toan Rubio NP CLS Signed For Medicare only, by signing this I certify the plan of care. Physicians Signature Date INTERNAL MEDICINE Observed: 07/23/2018 Status: F Source: [place]I OFFICE VISIT 5:17 PM [facility] [address] [place] [address] [place] [address] OFFICE VISIT Date of Service: 07/23/18 MR#: [id number] Acct: [id number] Name: JOHN RANGEL Rep #: [id number] : 1980 Provider: Toan Rubio NP Age/Sex: 38/M Location: [facility] Status: Signed Intake Vital Signs07/23/18 Height 5 ft 10 in 07/23/18 Weight: 197 lb 07/23/18 Body Mass Index (BMI) 28.3 07/23/18 Blood Pressure 141/91 07/23/18 Blood Pressure Location Lt brachial Intake Visit Reasons: BACK PAIN Chief Complaint: back pain Is patient in pain?: Yes (back) Pain scale (1-10): 8 Allergies No Known Allergies Allergy (Verified 05/27/17 09:26) Medications glucagon (human recombinant) 1 mg injection kit 1 mg IM ONCE 12/05/17 [History Confirmed 12/05/17] insulin glargine (U-100) 100 unit/mL subcutaneous solution 90 unit SC QHS ml 12/05/17 [History Confirmed 12/05/17] novolog SC TID 12/05/17 [History Confirmed 12/05/17] omeprazole 40 mg capsule,delayed release 40 mg PO ONCE 12/05/17 [History Confirmed 12/05/17] sertraline 100 mg tablet 100 mg PO QDAY 12/05/17 [History Confirmed 12/05/17] BD Ultra-Fine Jeanne Pen Needle 32 gauge x See Dose Instructions .ROUTE .MEDSUPPLY #150 ea NS 02/01/18 [Rx] bupropion HCl XL 150 mg 24 hr tablet, extended release 150 mg PO QAM #90 tab 03/18/18 [Rx] cyclobenzaprine 10 mg tablet 5 mg PO TID PRN #30 tab 07/23/18 [Rx Confirmed 07/23/18] naproxen 500 mg tablet 500 mg PO Q12H PRN #60 tab 07/23/18 [Rx Confirmed 07/23/18] PFSH Medical History Nondisplaced fracture of fifth metatarsal bone of right foot (Acute) Anxiety (Chronic) diabetes type 1 (Chronic) Depression (Chronic) Back pain (Chronic) Family History Mother Hypertension Grandmother Dementia Social History Smoking Status: Former smoker alcohol intake: current alcohol intake frequency: holidays/special occasions only Alcohol type: beer, wine substance use type: does not use what type of physical activity do you participate in: none HPI HPI Chief Complaint: back pain Details: JOHN RANGEL, is a 38 M who presents to the office today for an acute visit of acute on chronic thoracic back pain. He has a past medical history as listed above. The patient states that he does have chronic mid thoracic and low back pain that has acutely worsened over the past 1-2 weeks. He denies any obvious injury though does state that he was carrying his children more and this could have caused him to have a strain. He states that the pain is an intermittent 6 out of 10 dull achy pain that is worsened with flexion and rotation. He has tried ibuprofen [id number] with mild relief. He denies any numbness, tingling, or weakness of the extremities. He denies any caudal symptoms. He has not tried icing or heat therapy. He does notice muscle pain in the right thoracic region at times as well. The patient otherwise denies any fever, chills, nausea, vomiting, shortness of breath, chest pain or pressure, palpitations, orthopnea, lower extremity edema, syncope or presyncopal episodes. ROS Const Constitutional: No weight change, body ache, chills, fatigue, sleep problems, fever(s), change in appetite, snoring, weakness, frequent falls, headache(s) or excessive sweating Eyes Eyes: No change in vision, eye pain, light sensitivity or blurry vision ENT ENT: No headache(s), abnormal hearing, ear pain, tinnitus, nasal congestion, sore throat or neck pain Resp Respiratory: No snoring, cough, shortness of breath or wheezing Cardio Cardiology: Positive for chest pain at rest (sometimes) Symptoms: Tightness; no excessive sweating, chest pain with exertion, shortness of breath, dyspnea on exertion, palpitations, orthopnea or lightheadedness Gastro GI: No abdominal pain, change in bowel habits, constipation, diarrhea, vomiting, nausea/dyspepsia or cramping Genitourinary Male: No painful urination, urinary incontinence, urinary frequency, urinary urgency, blood in urine, testicle pain or other Musc Musculoskeletal: Positive for back pain; no neck pain, abnormal walking, joint pain, limited range of motion, numbness or tingling Skin Skin: No redness, dry skin, itching, lesions, wounds or rash Neuro Neurology: No weakness, frequent falls, headache(s), abnormal hearing, abnormal walking, numbness, tingling, abnormal speech, dizziness or memory loss Psych Psychiatric: No change in appetite, No memory loss, No anxiety, No depression, No Thoughts of harming yourself/Others Endo Endocrine: No fatigue, excessive sweating, cold intolerance, increased thirst/drinking, heat intolerance, flushing or increased hunger Aller/Imm Allergy/Immunologic: No wheezing, itchy eyes, hives or seasonal allergy symptoms Rajiv/Lymp Hematologic/Lymphatic: No easy bleeding, easy bruising or enlarged lymph nodes Exam Const General: cooperative, comfortable, no acute distress Nutritional Appearance: average body habitus, well nourished Orientation: alert, oriented x3 Limitations: mental status not altered Resp Effort AND Inspection: normal respiratory effort, able to speak in complete sentences, normal respiratory pattern, symmetric chest movement, no audible wheezes, no cough Auscultation: Bilateral: Clear to Auscultation Cardio Palpation: normal PMI Rate: regular rate Heart Sounds: S1 normal, S2 normal, normal S1 and S2, no click, no gallops, no murmurs, no rubs Musc Thoracic/Lumbar Spine: straight leg raise negative bilaterally, pain with thoraco-lumbar ROM with forward flexion, with lateral flexion to the right and with lateral flexion to the left, no lumbar spinal tenderness, straight leg raise negative, thoraco-lumbar spasm on the right in the mid thoracic Other: Diminished range of motion due to pain in the right thoracic region Skin General: no rashes or lesions noted, elasticity normal, turgor normal Lesions: no lesions Rashes: no rashes Neuro General: alert, awake, oriented x3, CN's II-XI intact bilaterally Speech: speech normal Gait: normal gait Motor: muscle tone normal throughout Extrem General: normal to inspection, normal gait, no edema, no pedal edema Psych Appearance: grossly normal Mental Status: mental status grossly normal Affect: normal affect Attitude: cooperative Thought Process: normal Assessment AND Plan Problems 1. Acute right-sided thoracic back pain M54.6 2. Muscle spasm M62.838 Plan The patient does have acute on chronic right-sided thoracic back pain with corresponding muscle spasms. Will treat conservatively at this time with [id number] NSAIDs, ice, and muscle relaxant. Educated on how to properly take the muscle relaxant and potential side effects and not to drive or work while taking the muscle relaxant. Will hold off on systemic steroids at this time given the patient's history of diabetes. Patient also referred to physical therapy. Patient educated on red flag signs and symptoms that require urgent medical attention. Patient to follow-up in 2 months or sooner if needed. This note was generated with [employer] dictation software. It may contain incorrect words, spelling, and punctuation that were not noted in checking the note before signing. Orders Referrals: Medications New: Refilled: Plan Detail Follow Up 2 months or sooner if needed Coding Level of Care Code Off vis,est,level 3 Diagnoses Acute right-sided thoracic back pain M54.6 Muscle spasm M62.838 07/23/18 1717 <Electronically signed by Toan PETERS> Date Toan PETERS Cosigner Signature: Date (if applicable) CC: ALLERGIES ALLERGIES DATE TYPE / CODE NAME / CODE REACTION SEVERITY SOURCE 12/17/2018 Drug No Known Unknown [facility] Allergy/4160 Allergies/F00 Hospital 37659(SNOMED 0196783(RXNOR Repository CT) M) ENCOUNTERS ENCOUNTERS ADMIT/DISCHARGE ACCOUNT ADMITTING ENCOUNTER LOCATION SOURCE NUMBER CLASS 12/24/2018/12/26/19 [id number] Ambulatory [address] Repository 12/17/2018 [id number] Ambulatory [facility] ing:LAB Repository 12/17/2018/12/17/19 [id number] Ambulatory BMSBuilding:B [address] [facility] Repository 12/16/2018 [id number] Ambulatory BMSBuilding:[place] Repository 11/27/2018 [id number] [facility] ing:LAB Repository 11/27/2018/11/27/20 [id number] Ambulatory BMSBuilding:B [address] [facility] Repository 08/20/2018/08/20/20 [id number] Ambulatory [address] ing:PT Repository 07/23/2018/07/23/20 [id number] Ambulatory BMSBuilding:B [address]i [address] [facility] Repository 04/30/2018 [id number] Ambulatory BMSBuilding:B [place] Repository PAYERS PAYERS ENCOUNTER GUARANTOR PAYER SUBSCRIBER SOURCE 12/17/2018 MICHIEL Primary [place] [id number] Insurance:CARESOURCEP ANDRIESSENDOB: [facility] oscar ZIMMERMAN Number: [id number] [address]Yol: [id number] Repository Date:2018-12-17 O ) [address]ATTN: [place] [address]CN: 12/17/2018 Secondary NOT GIVENUNK Yi Insurance:SELF PAY [facility] Number: Effective Repository Date:2018-12-17 12/17/2018 MICHIEL Primary JOHN [place] [id number] Insurance:CARESOURCEP ANDRIESSENDOB: [facility] oscar CEDENO Number: [id number] [facility] Hospital [address]Wrl: [id number] Repository Date:2018-11-27P O () [address]ATTN: [place] [address]DF: 12/17/2018 Secondary NOT GIVENUNK [place] Insurance:SELF PAY [facility] Number: Effective Repository Date:2018-12-17 12/16/2018 JOHN Primary JOHN [place] [id number] Insurance:CARESOURCEP ANDRIESSENDOB: [facility] oscar CEDENO Number: [id number] [facility] Hospital [address]Odc: [id number] Repository Date:2018-12-16P O () [address]ATTN: [place] [address]ZA: 12/16/2018 Secondary NOT GIVENUNK Yi Insurance:SELF PAY [facility] Number: Effective Repository Date:2018-12-16 11/27/2018 JOHN Primary JOHN [place] [id number] Insurance:CARESOURCEP ANDRIESSENDOB: [facility] oscar CEDENO Number: [id number] [facility] Hospital [address]Wut: [id number] Repository Date:2018-11-27P O () [address]ATTN: [place] [address]CV: 11/27/2018 Secondary NOT GIVENUNK Yi Insurance:SELF PAY [facility] Number: Effective Repository Date:2018-11-27 11/27/2018 JOHN Primary JOHN [place] [id number] Insurance:CARESOURCEP ANDRIESSENDOB: [facility] oscar CEDENO Number: [id number] County Hospital [address]Uxq: [id number] Repository Date:2018-11-24P O (HP) [address]ATTN: [place] [address]AU: 11/27/2018 Secondary NOT GIVENUNK Yi Insurance:SELF PAY [facility] Number: Effective Repository Date:2018-11-27 08/20/2018 JOHN Primary JOHN [place] [id number] Insurance:CARESOURCEP ANDRIESSENDOB: [facility] oscar CEDENO Number: [id number] County Hospital [address]Hjv: [id number] Repository Date:2018-03-02P O () [address]ATTN: [place] [address]LB: 08/20/2018 Secondary NOT GIVENUNK Yi Insurance:SELF PAY [facility] Number: Effective Repository Date:2018-07-28 07/23/2018 MANSOORIEL Primary JOHN [place] [id number] Insurance:CARESOURCEP ANDRIESSENDOB: [facility] ITZ moore Number: [id number] [id number] Repository [address]Yfw: (330) Date:2018-07-23P O [phone] () [address]ATTN: [place] [address]PC: 07/23/2018 Secondary NOT GIVENUNK [place] Insurance:SELF PAY [facility] Number: Effective Repository Date:2018-07-23 04/30/2018 MICHIEL Primary CATRINA [place] [id number] Insurance:CIGNAPolicy ANDRIESSENDOB: [facility] ITZ Number: [id number] [id number] Repository [address]Nsz: ([phone]) Date:1007-30-68[phone] (HP) [id number], [place] [address]JB: 04/30/2018 Secondary NOT GIVENUNK Yi Insurance:SELF PAY [facility] Number: Effective Repository Date:2018-04-29
== END ==
PROVIDERS: Family Provider Nurse Practitioner Family; PCP Nurse Practitioner Family; Referring Provider Internal Medicine Cardiovascular Disease; Visit Provider Internal Medicine Cardiovascular Disease
DX: Z13.220 Encounter for screening for lipoid disorders (principal)
CPT/HCPCS: 36415; 80061; 80076

== ENCOUNTER → 2018-12-29 08:46 | Outpatient (CLI) | payer OTHER, MEDICAID, SELFPAY ==
[2018-12-17 08:49] VITALS: BMI 29.4
--- NOTE | 2018-12-29 08:50 | US_ITS ---
HISTORY: POSSIBLE GOMEZ ADD SPLEEN IMAGES TECHNIQUE: Transabdominal ultrasound was performed with real-time and static gomes-scale imaging. COMPARISON: None FINDINGS: # of images incl. paperwork: 98 Liver: The liver has diffuse mild increased echogenicity and is mildly prominent in size, measuring 17 cm. The bile ducts are within normal limits. There is no demonstrated mass lesion. Portal vein patent with appropriate direction of flow. Gallbladder: Normal distended gallbladder. The gallbladder wall measures 2.5 mm. There is a negative sonographic Zuluaga's sign. There is no pericholecystic fluid. There are no gallstones. Common Bile Duct: The common bile duct measures 3 mm. Spleen: Normal size of the spleen. The spleen measures 11.8 x 3.8 x 4.7 cm. Pancreas: There is normal echogenicity of the pancreas. There is no demonstrated pancreatic mass or cyst. Right Kidney: Normal size of the right kidney. The right kidney measures 10.8 x 4.7 x 4.8 cm. Normal renal cortex. There is no demonstrated renal mass or cyst. There is no right hydronephrosis. There is no ascites. US/Abdomen Limited IMPRESSION: Hepatic steatosis with mild hepatomegaly. Otherwise unremarkable. at [id number] Reported and signed by: Frederick Dow MD Electronically Signed: Frederick Dow, at 9:56 EST Tel , Service support ,
[2018-12-29 10:20] LABS: Prothrombin Time (Protime)PT. 12.7 SECONDS (11.7-14.9)
[2018-12-29 11:04] LABS: AST(SGOT) 29 U/L (15-37); Alanine Aminotransfer ALT/SGPT 53 U/L (16-61); Albumin, Serum 3.7 g/dL (3.2-5.0); Alkaline Phosphatase 101 U/L (45-117); Bilirubin, Direct 0.12 mg/dL (0.00-0.30); Globulin 3.6 g/dL (2.2-4.2); Protein, Total 7.3 g/dL (6.4-8.2)
[2018-12-30 04:07] LABS: HEPATITIS B SURFACE AG Negative (Negative); Hepatitis A IgM Antibody Negative (Negative); Hepatitis B Core AB IgM Negative (Negative)
[2018-12-30 15:24] LABS: Ceruloplasmin 30.3 mg/dL (16.0-31.0); Hep B Surface Antibodies Non Reactive (.); Hep C Antibodies <0.1 s/co ratio (0.0-0.9)
[2018-12-31 12:02] LABS: Anti-Mitochondrial AB <20.0 Units (0.0-20.0); Anti-Nuclear Antibody Test Negative (.)
== END ==
PROVIDERS: Family Provider Nurse Practitioner Family; PCP Nurse Practitioner Family; Referring Provider Internal Medicine Gastroenterology
DX: K75.81 Nonalcoholic steatohepatitis (NASH) (principal)
CPT/HCPCS: 36415; 76705; 80074; 80076; 82390; 83516; 85610; 86038; 86706

== ENCOUNTER → 2019-06-13 11:27 | Outpatient (CLI) | payer MEDICAID, SELFPAY ==
[2019-06-13 10:57] VITALS: BMI 29.4
--- NOTE | 2019-06-13 11:34 | RAD_ITS ---
STUDY: X-RAY - RIGHT FOOT CLINICAL: Male, 38 years old. Pain and swelling second and third metatarsals. History of fifth metatarsal fracture. TECHNIQUE: 3 view(s) of the foot. COMPARISON: 10/02/2017. FINDINGS: Normal talus, calcaneus, and tarsal bones. Normal visualized subtalar, talonavicular, calcaneocuboid, tarsal and tarsometatarsal articulations. 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 The remaining metatarsal bones are normal. Normal metatarsophalangeal joint of the great toe. Normal tibial and fibular sesamoid bones. Normal interphalangeal joint of the great toe. Normal phalanges of the great toe. Normal second through fifth metatarsophalangeal joints. Normal interphalangeal joints and phalanges of the lesser toes. The soft tissue structures are unremarkable. RAD/Foot min 3 Views IMPRESSION: 1. No acute fracture or dislocation of the right foot. 2. 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 Electronically Signed: Ernesto Dasilva MD at 12:48 EDT , Service support ,
== END ==
PROVIDERS: Family Provider Nurse Practitioner Family; PCP Nurse Practitioner Family; Referring Provider Physician Assistant Medical; Visit Provider Physician Assistant Medical
DX: M79.671 Pain in right foot (principal)
CPT/HCPCS: 73630

== ENCOUNTER → 2020-07-13 14:09 | Outpatient (CLI) | payer MEDICAID, SELFPAY ==
[2020-07-13 13:58] VITALS: BMI 29.4
--- NOTE | 2020-07-13 14:09 | RAD_ITS ---
STUDY: X-RAY - RIGHT FOOT CLINICAL: Male, 40 years old. TURNED FOOT WRONG AND HEARD A POP. SWELLING PAIN OVER LATERAL FOOT. PREV 5TH METATARSAL FX TECHNIQUE: 3 view(s) of the foot. COMPARISON: Comparison is made with prior study dated 06/13/2019. FINDINGS: Normal talus, calcaneus, and tarsal bones. Normal visualized subtalar, talonavicular, calcaneocuboid, tarsal and tarsometatarsal articulations. Nondisplaced transverse fracture through the midshaft of the fourth metacarpal. Healed fracture at the base of the fifth metatarsal and in the midportion of the third metatarsal. Normal metatarsophalangeal joint of the great toe. Normal tibial and fibular sesamoid bones. Normal interphalangeal joint of the great toe. Normal phalanges of the great toe. Normal second through fifth metatarsophalangeal joints. Normal interphalangeal joints and phalanges of the lesser toes. Soft tissue swelling. RAD/Foot min 3 Views IMPRESSION: Nondisplaced acute fracture through the midshaft of the fourth metatarsal. Healed fracture at the base of the fifth metatarsal as well as in the midportion of the third metatarsal. Electronically Signed: Saud Carroll, at 14:43 EDT , Service support ,
== END ==
PROVIDERS: PCP Internal Medicine; Referring Provider Physician Assistant Surgical; Visit Provider Physician Assistant Surgical
DX: S96.911A Strain of unspecified muscle and tendon at ankle and foot level, right foot, initial encounter (principal)
CPT/HCPCS: 73630

== ENCOUNTER → 2020-07-15 09:03 | Outpatient (CLI) | payer MEDICAID, SELFPAY ==
[2020-07-15 08:43] VITALS: BMI 29.4
[2020-07-15 12:29] LABS: Hemoglobin 15.7 g/dL (13.0-16.5); Mean Corp Hgb Conc 33.4 g/dL (32-36); Mean Corpuscular Hgb 29.5 pg (27.0-32.0); Mean Corpuscular Volume 88.3 fL (80-94); Mean Platelet Vol. 10.6 fl (6.2-12.0); Platelet Count 293 K/mm3 (150-450); RBC Distribution Width CV 11.9 % (11.6-14.6); RBC Distribution Width SD 38.5 fl (35.1-43.9); Red Blood Count 5.32 M/mm3 (4.6-6.2); White Blood Count 6.3 K/mm3 (4.4-11.0)
[2020-07-15 12:46] LABS: Vitamin D,25 Hydroxy 27.9 ng/mL
[2020-07-15 12:49] LABS: Hemoglobin A1c 9.7 % (3.8-5.6)
[2020-07-15 13:06] LABS: AST(SGOT) 24 U/L (15-37); Alanine Aminotransfer ALT/SGPT 46 U/L (16-61); Albumin, Serum 3.5 g/dL (3.2-5.0); Alkaline Phosphatase 107 U/L (45-117); Anion Gap 5 (5-15); BUN 22 mg/dL (7-18); BUN/Creat Ratio 17.6 RATIO (10-20); Calcium,Total 8.7 mg/dL (8.5-10.1); Chloride 104 mmol/L (98-107); Cholesterol 213 mg/dL (200); Creatinine, Serum 1.25 mg/dL (0.70-1.30); EST Glomerular Filtration Rate 68 mL/min (>60); Est Glom Filt Rate - Afr Amer 82 mL/min (>60); Globulin 3.6 g/dL (2.2-4.2); Glucose 305 mg/dL (74-106); High Density Lipoprotein 34 mg/dL; Potassium 4.1 mmol/L (3.5-5.1); Protein, Total 7.1 g/dL (6.4-8.2); Sodium Level 137 mmol/L (136-145); Thyroid Stim Hormone (TSH) 0.88 uIU/mL (0.358-3.74); Triglycerides 292 mg/dL; Very Low Density Lipoprotein 58 mg/dL (5-40)
== END ==
PROVIDERS: PCP Internal Medicine; Referring Provider Nurse Practitioner Family; Visit Provider Nurse Practitioner Family
DX: E10.65 Type 1 diabetes mellitus with hyperglycemia (principal); E55.9 Vitamin D deficiency, unspecified; S92.344A Nondisplaced fracture of fourth metatarsal bone, right foot, initial encounter for closed fracture
CPT/HCPCS: 36415; 80053; 80061; 82306; 83036; 84443; 85027

== ENCOUNTER → 2020-07-21 14:25 | Outpatient (CLI) | payer MEDICAID, SELFPAY ==
[2020-07-15 08:43] VITALS: BMI 29.4
[2020-07-21 11:14] VITALS: BMI 29.4
--- NOTE | 2020-07-21 14:35 | BD_ITS ---
STUDY: DUAL ENERGY X-RAY ABSORPTIOMETRY / DXA REASON FOR EXAM: Male, 40 years old. Pat is 195.7# and 5''8.75 and quot;. Type I diabetic and takes Insulin. Smoker for 25 yrs. now. Does not exercise. Hx of right foot fx x 2 times. TECHNIQUE: Bone Mineral Density (BMD) measurements of lumbar spine and bilateral hips were obtained. COMPARISON: None. FINDINGS: Lumbar Spine (L1-L4): g/cm2 (0.959) / T-score (-2.1) / Z-score (-2.1) Findings are suggestive of osteopenia with a moderate fracture risk. Left Femur Total: g/cm2 (0.960) / T-score (-1.0) / Z-score (0.8) Left Femoral Neck: g/cm2 (0.849) / T-score (-1.7) / Z-score (-1.4) Right Femur Total: g/cm2 (0.948) / T-score (-1.1) / Z-score (-0.9) Right Femoral Neck: g/cm2 (0.827) / T-score (-1.9) / Z-score (-1.6) BD/Dexa Bone Density Study IMPRESSION: The patient is considered osteopenic as outlined below according to World [place] Organization (WHO) criteria with a moderate fracture risk. Reference Information: The T-score is the number of standard deviations above or below the standard which is normal for young adults at their peak bone mineral density. The World Health Organization (WHO) interprets the T-scores as follows: Above -1 Normal bone density Between -1 and -2.5 Osteopenia Equal to / or below -2.5 Osteoporosis As a practical clinical guideline, osteopenia may be graded as follows: Mild -1 through -1.5 Moderate -1.6 through -2.0 Severe -2.1 through -2.4 The Z-score is the number of standard deviations above or below age-matched controls. A Z-score of less than -1.5 would be considered abnormal. References: 1. NIH Osteoporosis and Related Bone Diseases http://www.osteo.org 2. International Society for Clinical Densitometry http://www.iscd.org 3. National Osteoporosis Foundation http://www.nof.org Electronically Signed: Saud Carroll, at 15:47 EDT , Service support ,
== END ==
PROVIDERS: PCP Internal Medicine; Referring Provider Nurse Practitioner Family; Visit Provider Nurse Practitioner Family
DX: S92.344A Nondisplaced fracture of fourth metatarsal bone, right foot, initial encounter for closed fracture (principal); T07.XXXA Unspecified multiple injuries, initial encounter
CPT/HCPCS: 77080

== ENCOUNTER 2021-01-03 01:05 | Emergency (ER) | payer MEDICAID, SELFPAY ==
[2020-12-27 17:13] VITALS: BMI 29.3
[2021-01-03 01:07] VITALS: BP 135/74; PULSE 97; RESP 18; TEMP 39.4; O2SAT 95; BMI 28.5
--- NOTE | 2021-01-03 01:38 | EKG12_ITS ---
Test Reason : SOB Blood Pressure : / mmHG Vent. Rate : 095 BPM Atrial Rate : 095 BPM P-R Int : 134 ms QRS Dur : 074 ms QT Int : 322 ms P-R-T Axes : 071 063 063 degrees QTc Int : 404 ms Normal sinus rhythm Normal ECG Confirmed by BERNARDA KAYE, CURT ([id number]), index editor ALEX PANCHAL ([id number]) on 01/04/2021 1:35:04 PM Referred By: Confirmed By:CURT MENCHACA MD
--- NOTE | 2021-01-03 01:38 | RAD_ITS ---
STUDY: X-RAY CHEST REASON FOR EXAM: Male, 40 years old. Increasing shortness of breath, fever and weakness. COVID positive one week ago. TECHNIQUE: AP portable chest. COMPARISON: None. FINDINGS: Subtle bilateral mid and lower lung airspace opacities. No effusions. No pneumothorax.. Normal size heart. Normal mediastinum and lam. Normal visualized pulmonary arteries. Normal visualized aortic arch and descending thoracic aorta. Normal visualized thoracic spine. Normal visualized ribs, clavicles, and shoulders. There is no demonstrated abnormality of the visualized soft tissue structures of the upper abdomen. RAD/Chest 1 View (Portable) IMPRESSION: Possible bilateral pneumonia. Consider correlation with CT chest. Electronically Signed: Milo Mock MD at 2:29 EST , Service support ,
--- NOTE | 2021-01-03 01:55 | ED.DCSUM_ITS ---
History of Present Illness Chief Complaint: Shortness of Breath Informant: Patient Onset: Days Associated Symptoms: Chills, Cough, Fever Chest Pain: Tightness Narrative: Is a 40-year-old male with recent diagnosis of COVID-19 infection presenting with worsening fever, cough and shortness of breath. Patient was diagnosed with Covid 1 week ago after he developed-like symptoms with loss of taste and smell. Feels like he is not getting better and was in fact getting worse. He continued to have fevers around 101 to 102 ?F. He took 800 mg of ibuprofen 1 hour prior to arrival. He has a cough that is nonproductive of any sputum. He also feels very dehydrated and that he is constantly thirsty. He denies any GI symptoms. Denies any rash. He denies any chest pain. He states he feels very weak. He states he feels short of breath with minimal exertion. Past Medical History - Allergies and Home Meds Allergies/Adverse Reactions: Allergies No Known Allergies Allergy (Verified 01/03/21 01:05) Primary Care Physician: Natasha Ocampo MD [Primary Care Provider] - Past Medical History: - - Type 1 diabetes mellitus, anxiety/depression, GERD Surgical History: noncontributory Lives: With Family Smoking Status: Current every day smoker Review of Systems General: Reports: Chills, Fever, Malaise. Denies: Sweats Eyes: Denies: Visual changes - bilaterally, Diplopia ENT: Denies: Rhinorrhea, Sore throat Cardiovascular: Denies: Chest pain, Palpitations Respiratory: Reports: Dyspnea, Cough, Dyspnea on exertion Gastrointestinal: Denies: Abdominal pain, Nausea, Vomiting, Diarrhea, Melena, Hematochezia Genitourinary: Denies: Dysuria, Hematuria, Frequency Musculoskeletal: Denies: Back pain, Extremity Pain Skin: Denies: Rash, Wounds Neurological: Reports: Weakness - generalized. Denies: Headache, Numbness Physical Exam Vital Signs/Narrative: Vital Signs Temp Pulse Resp BP Pulse Ox 01/03/21 01:07 102.9 F H 97 18 135/74 H 95 Inital Vital Signs reviewed: Yes General: Well nourished, Well developed, No Acute Distress Head: Normocephalic, Atraumatic Eyes: Perrl, EOMI ENT: No rhinorrhea, TM's clear, Dry mucous membranes. Negative for: Nasal congestion, Sinus tenderness Neck: Supple, Nontender, No JVD Cardiovascular: Regular rhythm, No murmurs, Tachycardia Respiratory: Chest nontender, - - Bibasilar crackles present. Mild conversational dyspnea present. Tachypneic. Negative for: Wheezing, Decreased Air Movement Abdomen: Soft, Nontender, Nondistended, Normal bowel sounds Back: Nontender, Normal Inspection Extremities: Nontender, No edema Skin: Normal color, No rash Neurological: Alert, Oriented x3, Cranial nerves II-XII grossly intact, Normal Strength, Normal Sensation Psychological: Normal affect, Normal Mood Diagnostic/Tx/Re-eval Chest X-Ray - ED: 1 View, Read by ED Physician, Read by Radiologist, - - Multifocal infiltrate Clinical Impression(s) from Imaging Studies Chest X-Ray 01/03/21 01:38 IMPRESSION: Possible bilateral pneumonia. Consider correlation with CT chest. Electronically Signed: Milo Mock MD at 2:29 EST , Service support , Chest CTA 01/03/21 02:26 IMPRESSION: Bilateral pneumonia very suggestive of Covid -19 pneumonia . No pulmonary embolus or thoracic aortic dissection. Electronically Signed: Milo Mock MD at 3:37 EST , Service support , Laboratory Data 01/03/21 01/03/21 01/03/21 01:50 01:50 01:50 WBC 5.9 RBC 4.63 Hgb 14.0 Hct 39.4 L MCV 85.1 MCH 30.2 MCHC 35.5 RDW Std Deviation 37.1 RDW Coeff of John 12.0 Plt Count 183 MPV 9.9 Immature Gran % (Auto) 0.300 Neut % (Auto) 76.2 H Lymph % (Auto) 19.5 Rolette % (Auto) 3.6 Eos % (Auto) 0.2 Baso % (Auto) 0.2 Absolute Neuts (auto) 4.5 Absolute Lymphs (auto) 1.15 Nucleated RBC % 0 D-Dimer Quant (PE/DVT) 0.53 H* Sodium 132 L Potassium 3.7 Chloride 98 Carbon Dioxide 27.0 Anion Gap 7 BUN 16 Creatinine 0.99 Estim Creat Clear Calc 102.41 Est GFR (MDRD) Af Amer 107 Est GFR (MDRD) Non-Af 89 BUN/Creatinine Ratio 16.2 Glucose 191 H Lactic Acid Calcium 8.4 L Total Bilirubin 0.60 AST 43 H ALT 56 Alkaline Phosphatase 135 H Troponin I < 0.015 B-Natriuretic Peptide Total Protein 6.6 Albumin 2.7 L Globulin 3.9 Albumin/Globulin Ratio 0.7 L 01/03/21 01/03/21 01:50 01:50 WBC RBC Hgb Hct MCV MCH MCHC RDW Std Deviation RDW Coeff of John Plt Count MPV Immature Gran % (Auto) Neut % (Auto) Lymph % (Auto) Rolette % (Auto) Eos % (Auto) Baso % (Auto) Absolute Neuts (auto) Absolute Lymphs (auto) Nucleated RBC % D-Dimer Quant (PE/DVT) Sodium Potassium Chloride Carbon Dioxide Anion Gap BUN Creatinine Estim Creat Clear Calc Est GFR (MDRD) Af Amer Est GFR (MDRD) Non-Af BUN/Creatinine Ratio Glucose Lactic Acid 0.8 Calcium Total Bilirubin AST ALT Alkaline Phosphatase Troponin I B-Natriuretic Peptide 43.1 Total Protein Albumin Globulin Albumin/Globulin Ratio - Rhythm Strip Rhythm Strip: Sinus Rhythm Rate: 95 Ectopy: None - EKG Initial EKG Interpretation: Sinus Rhythm, - - Normal sinus rhythm at a rate of 95Normal axi sNormal intervalsNormal ST segmentsInterpreted by emergency medicine physician - Medical Decision Making Patient evaluated for worsening symptoms associate with COVID-19 infection. He is on day 7-10 of infection. Patient has continually febrile and feeling more short of breath. Patient took NSAIDs prior to arrival and is given Tylenol as well as IV fluids. Chest x-ray shows multifocal infiltrate. D-dimer obtained is mildly elevated. CTA added on to rule out PE. No PE is seen however CT of the chest is consistent with bilateral viral pneumonia. This fits his clinical picture. Patient has a normal white blood cell count and no significant electrolyte abnormalities. He does have a very mild hyponatremia but again, was given IV fluid in the emergency room. On reevaluation he is feeling much better. Patient is ambulating does not have any desaturation. I do not think he has a superimposed bacterial pneumonia. I believe that patient is stable for outpatient follow-up. He is not hypoxic and does not require steroids. He is not wheezing either. Patient is discharged home with instructions to follow-up with his primary care doctor as needed. I did recommend that he get pulse oximeter so he can keep an eye on his pulse ox at home should he need to return to the emergency room. Patient is counseled on signs and symptoms requiring return to the emergency room. Patient verbalizes agreement and understand this plan. Patient discharged home in stable and improved condition. ED Disposition - Plan for ED Patient: Disposition: Home or Assisted Living Diagnosis: COVID-19, Fever Instructions: Coronavirus Disease 2019 (COVID-19): Caring for Yourself or Others Referrals: Natasha Ocampo MD [Primary Care Provider] - Additional Instructions: You do not have any findings consistent with a blood clot or bacterial pneumonia. Please continue to alternate Tylenol and ibuprofen for fever control. Return with any worsening difficulty breathing or chest pain.
[2021-01-03] MEDS: 0.9% Normal Saline 1,000 ML 999 ML IV (02:06)
[2021-01-03] MEDS: Acetaminophen 500 MG Tablet 1000 MG PO (02:06)
[2021-01-03 02:12] LABS: Absolute Lymphocyte Count 1.15 X10^3/uL (0.83-4.51); Absolute Neutrophil Count 4.5 X10^3/uL (2.0-7.7); Basophil# 0.01 X10^3/uL; Basophil% 0.2 % (0-1); Eosinophil# 0.01 X10^3/uL; Eosinophils% 0.2 % (0-5); Hematocrit 39.4 % (40-54); Lymphocyte # 1.15 X10^3/ul (4.0); Lymphocyte % 19.5 % (19-41); Mean Corp Hgb Conc 35.5 g/dL (32-36); Mean Corpuscular Hgb 30.2 pg (27.0-32.0); Mean Corpuscular Volume 85.1 fL (80-94); Mean Platelet Vol. 9.9 fl (6.2-12.0); Monocyte# 0.21 X10^3/uL; Monocyte% 3.6 % (0-10); NRBC Flagged by Analyzer 0 % (0-5); Neutrophil # 4.51 X10^3/uL (2.7-7.7); Neutrophil % 76.2 % (47-70); Platelet Count 183 K/mm3 (150-450); RBC Distribution Width SD 37.1 fl (35.1-43.9); Red Blood Count 4.63 M/mm3 (4.6-6.2); White Blood Count 5.9 K/mm3 (4.4-11.0)
[2021-01-03 02:25] LABS: D-Dimer Quantitative (DVT/PE) 0.53 FEU/ug/m (0.27-0.49)
--- NOTE | 2021-01-03 02:26 | CT_ITS ---
STUDY: CTA CHEST REASON FOR EXAM: Male, 40 years old. COVID for one week, shortness of breath, fever, weakness, elevated d-dimer. RADIATION DOSAGE (If Supplied By Facility): CTDIvol = ( 13.74 ) mGy, DLP = ( 475.09 ) mGycm TECHNIQUE: The examination was performed with the intravenous administration of IV 100mL Isovue-370. Post-processing of the angiographic images was performed, with multiplanar reformation and 3D reconstruction. Individualized dose optimization techniques were used for this CT. COMPARISON: Chest x-ray January 03, 2021. FINDINGS: Normal enhancement of the main pulmonary artery and right and left pulmonary arteries. Normal enhancement of the bilateral peripheral pulmonary arteries. There is no demonstrated pulmonary embolism. Normal thoracic aorta and visualized great vessels. There is no demonstrated aortic dissection. Normal heart and pericardium. Normal mediastinum. Normal hilar regions. Normal visualized trachea and bronchi. Diffuse peripheral groundglass opacities bilaterally with most severe involvement of the lower lobes. These groundglass opacities correspond to the abnormalities seen on chest x-ray. No effusions. No pneumothorax. Normal chest wall structures. Normal osseous structures. Normal visualized upper abdomen. CT/CTA Chest W/WO Contrast IMPRESSION: Bilateral pneumonia very suggestive of Covid -19 pneumonia . No pulmonary embolus or thoracic aortic dissection. Electronically Signed: Milo Mock MD at 3:37 EST , Service support ,
[2021-01-03 02:29] LABS: ALB/GLOB Ratio 0.7 RATIO (0.9-2.4); AST(SGOT) 43 U/L (15-37); Alanine Aminotransfer ALT/SGPT 56 U/L (16-61); Albumin, Serum 2.7 g/dL (3.2-5.0); Alkaline Phosphatase 135 U/L (45-117); Anion Gap 7 (5-15); BUN 16 mg/dL (7-18); BUN/Creat Ratio 16.2 RATIO (10-20); Calcium,Total 8.4 mg/dL (8.5-10.1); Chloride 98 mmol/L (98-107); Creatinine, Serum 0.99 mg/dL (0.70-1.30); EST Glomerular Filtration Rate 89 mL/min (>60); Est Glom Filt Rate - Afr Amer 107 mL/min (>60); Estimated Creatinine Clearance 102.41 ml/min; Globulin 3.9 g/dL (2.2-4.2); Glucose 191 mg/dL (74-106); Potassium 3.7 mmol/L (3.5-5.1); Protein, Total 6.6 g/dL (6.4-8.2); Sodium Level 132 mmol/L (136-145)
[2021-01-03 02:31] LABS: BNP,B-Type NATRIURETIC PEPTIDE 43.1 pg/mL (0-100)
[2021-01-03 02:33] LABS: Lactic Acid 0.8 mmol/L (0.4-1.9)
[2021-01-03 02:59] VITALS: O2SAT 95
[2021-01-03 03:18] VITALS: BP 122/77; PULSE 92; RESP 18; O2SAT 97
== END 2021-01-03 04:22 | disposition home or self-care (01) ==
PROVIDERS: Emergency Provider Emergency Medicine; PCP Internal Medicine
DX: U07.1 COVID-19 (principal); R50.9 Fever, unspecified; E10.9 Type 1 diabetes mellitus without complications; K21.9 Gastro-esophageal reflux disease without esophagitis; Z79.4 Long term (current) use of insulin; F17.200 Nicotine dependence, unspecified, uncomplicated
CPT/HCPCS: 36415; 71045; 71275; 80053; 83605; 83880; 84484; 85025; 85379; 87040; 93005; 96360; 99285; J7030; Q9967

== ENCOUNTER → 2021-04-21 16:17 | Outpatient (CLI) | payer MEDICAID, SELFPAY ==
--- NOTE | 2021-04-21 16:18 | RAD_ITS ---
STUDY: X-RAY - RIGHT FOOT CLINICAL: Male, 40 years old. Pain after trauma. [place] a pop in the top of his foot this morning. TECHNIQUE: 3 view(s) of the foot. COMPARISON: None. FINDINGS: Normal talus, calcaneus, and tarsal bones. Normal visualized subtalar, talonavicular, calcaneocuboid, tarsal and tarsometatarsal articulations. There are remote healed fractures of the second through fifth metatarsals. There is minimal degenerative arthrosis of the metatarsophalangeal joint of the hallux . Normal tibial and fibular sesamoid bones. Normal interphalangeal joint of the great toe. Normal phalanges of the great toe. Normal second through fifth metatarsophalangeal joints. Normal interphalangeal joints and phalanges of the lesser toes. The soft tissue structures are unremarkable. RAD/Foot min 3 Views IMPRESSION: Healed fractures of the second through fifth metatarsals without acute abnormality of the right foot. Electronically Signed: Migel Huerta DO at 16:55 EDT Tel [phone], Service support ,
== END ==
PROVIDERS: PCP Internal Medicine; Referring Provider Physician Assistant; Visit Provider Physician Assistant
DX: M79.671 Pain in right foot (principal)
CPT/HCPCS: 73630

== ENCOUNTER 2021-04-27 09:31 | Outpatient (RCR) | payer MEDICAID, SELFPAY | END 2021-06-01 23:59 | LOC: IMMUN 09:31 | PROVIDERS: PCP Internal Medicine; Visit Provider Family Medicine | DX: Z23 Encounter for immunization (principal) | CPT/HCPCS: 0001A; 91300 ==

== ENCOUNTER 2021-12-05 14:54 | Outpatient (CLI) | payer MEDICAID, SELFPAY ==
[2021-12-05 17:26] LABS: Absolute Lymphocyte Count 2.53 X10^3/uL (0.83-4.51); Absolute Neutrophil Count 3.6 X10^3/uL (2.0-7.7); Basophil# 0.08 X10^3/uL; Basophil% 1.2 % (0-1); Eosinophil# 0.17 X10^3/uL; Eosinophils% 2.5 % (0-5); Hematocrit 46.7 % (40-54); Lymphocyte # 2.53 X10^3/ul (0.83-4.51); Lymphocyte % 37.6 % (19-41); Mean Corp Hgb Conc 34.3 g/dL (32-36); Mean Corpuscular Hgb 29.1 pg (27.0-32.0); Mean Corpuscular Volume 85.1 fL (80-94); Mean Platelet Vol. 9.6 fl (6.2-12.0); Monocyte# 0.29 X10^3/uL; Monocyte% 4.3 % (0-10); NRBC Flagged by Analyzer 0 % (0-5); Neutrophil # 3.63 X10^3/uL (2.7-7.7); Platelet Count 338 K/mm3 (150-450); RBC Distribution Width CV 13.1 % (11.6-14.6); RBC Distribution Width SD 40.4 fl (35.1-43.9); Red Blood Count 5.49 M/mm3 (4.6-6.2); White Blood Count 6.7 K/mm3 (4.4-11.0)
[2021-12-05 17:43] LABS: Hemoglobin A1c 9.7 % (3.8-5.6)
[2021-12-05 17:44] LABS: ALB/GLOB Ratio 0.7 RATIO (0.9-2.4); AST(SGOT) 34 U/L (15-37); Alanine Aminotransfer ALT/SGPT 254 U/L (16-61); Albumin, Serum 3.3 g/dL (3.2-5.0); Alkaline Phosphatase 327 U/L (45-117); Anion Gap 12 (5-15); BUN 20 mg/dL (7-18); BUN/Creat Ratio 14.4 RATIO (10-20); Calcium,Total 9.8 mg/dL (8.5-10.1); Chloride 97 mmol/L (98-107); Cholesterol 319 mg/dL (200); Creatinine, Serum 1.39 mg/dL (0.70-1.30); EST Glomerular Filtration Rate 60 mL/min (>60); Est Glom Filt Rate - Afr Amer 72 mL/min (>60); Globulin 4.8 g/dL (2.2-4.2); Glucose 313 mg/dL (74-106); High Density Lipoprotein 40 mg/dL; Potassium 3.6 mmol/L (3.5-5.1); Protein, Total 8.1 g/dL (6.4-8.2); Sodium Level 136 mmol/L (136-145); Triglycerides 255 mg/dL; Very Low Density Lipoprotein 51 mg/dL (5-40)
== END 2021-12-05 23:59 | disposition short-term general hospital (02) ==
LOC: BIMLAB 14:55
PROVIDERS: PCP Internal Medicine; Referring Provider Internal Medicine; Visit Provider Internal Medicine
DX: E10.65 Type 1 diabetes mellitus with hyperglycemia (principal)
CPT/HCPCS: 36415; 80053; 80061; 83036; 85025

== ENCOUNTER 2022-02-08 13:50 | Outpatient (CLI) | payer MEDICAID, SELFPAY ==
[2022-02-08 15:18] LABS: AST(SGOT) 29 U/L (15-37); Alanine Aminotransfer ALT/SGPT 67 U/L (16-61); Albumin, Serum 3.8 g/dL (3.2-5.0); Alkaline Phosphatase 204 U/L (45-117); Anion Gap 5 (5-15); BUN 20 mg/dL (7-18); BUN/Creat Ratio 14.9 RATIO (10-20); Calcium,Total 9.4 mg/dL (8.5-10.1); Chloride 100 mmol/L (98-107); Creatinine, Serum 1.34 mg/dL (0.70-1.30); EST Glomerular Filtration Rate 62 mL/min (>60); Est Glom Filt Rate - Afr Amer 75 mL/min (>60); Globulin 3.8 g/dL (2.2-4.2); Glucose 181 mg/dL (74-106); Potassium 4.1 mmol/L (3.5-5.1); Protein, Total 7.6 g/dL (6.4-8.2); Sodium Level 138 mmol/L (136-145)
== END 2022-02-08 23:59 | disposition home or self-care (01) ==
LOC: BIMLAB 13:51
PROVIDERS: PCP Internal Medicine; Referring Provider Internal Medicine; Visit Provider Internal Medicine
DX: E10.65 Type 1 diabetes mellitus with hyperglycemia (principal)
CPT/HCPCS: 36415; 80053

== ENCOUNTER → 2022-06-13 | Outpatient (CLI) | payer MEDICAID, SELFPAY ==
--- NOTE | 2022-06-13 16:58 | RAD_ITS ---
STUDY: X-RAY - LEFT FOOT CLINICAL: Male, 41 years old. pain TECHNIQUE: 3 view(s) of the foot. COMPARISON: Left foot radiograph 06/06/2022 FINDINGS: Normal talus, calcaneus, and tarsal bones. Normal visualized subtalar, talonavicular, calcaneocuboid, tarsal and tarsometatarsal articulations. Apparent new transverse fracture second metatarsal minimally displaced. Normal metatarsophalangeal joint of the great toe. Normal tibial and fibular sesamoid bones. Normal interphalangeal joint of the great toe. Normal phalanges of the great toe. Normal second through fifth metatarsophalangeal joints. Normal interphalangeal joints and phalanges of the lesser toes. The soft tissue structures are unremarkable. RAD/Foot min 3 Views IMPRESSION: fracture second metatarsal Electronically Signed: Mike Farr MD at 17:32 EDT ,
--- NOTE | 2022-06-13 16:58 | RAD_ITS ---
STUDY: X-RAY - LEFT ANKLE REASON FOR EXAM: Male, 41 years old. pain TECHNIQUE: 3 view(s) of the ankle. COMPARISON: 06/06/2022 FINDINGS: Normal visualized distal tibia and fibula. Normal medial and lateral malleoli. Normal tibiotalar articulation and ankle mortise. Normal visualized talus and calcaneus. The visualized subtalar, talonavicular, calcaneocuboid and tarsal articulations are normal. The soft tissue structures are unremarkable. RAD/Ankle min 3 Views IMPRESSION: Normal x-ray examination of the ankle. Electronically Signed: Mike Farr MD at 17:30 EDT ,
== END | disposition home or self-care (01) ==
PROVIDERS: PCP Internal Medicine; Referring Provider Physician Assistant; Visit Provider Physician Assistant
DX: M79.672 Pain in left foot (principal); M25.572 Pain in left ankle and joints of left foot
CPT/HCPCS: 73610; 73630